=== PATIENT | male | born 1940 | race Caucasian/White ===

== ENCOUNTER → 2024-04-03 08:09 | Outpatient (REF) | payer MEDICARE, BC, SELFPAY | LOC: RAD 08:09 | PROVIDERS: ATTENDING PHYSICIAN Surgery Vascular Surgery; FAMILY PHYSICIAN Internal Medicine Geriatric Medicine | DX: I73.9 Peripheral vascular disease, unspecified (principal) | CPT/HCPCS: 93922; 93925 ==

== ENCOUNTER → 2024-04-07 07:16 | Outpatient (REF) | payer MEDICARE, BC, SELFPAY ==
[2024-04-07 08:38] LABS: % Basophils 0.6 % (0-2); % Eosinophils 2.3 % (0-6); % Immature Granulocytes 0.5 % (0-0.5); % Lymphocytes 17.6 % (20.5-51.1); % Monocytes 11.9 % (1.7-9.3); % Neutrophils 67.1 % (42.2-75.2); Absolute Basophils 0.1 10^3/uL (0-0.2); Absolute Eosinophils 0.2 10^3/uL (0-0.7); Absolute Lymphocytes 1.5 10^3/uL (1.2-3.4); Absolute Neutrophils 5.9 10^3/uL (1.4-6.5); Hematocrit 42.2 % (39.0-52.0); Hemoglobin 14.1 g/dL (13.0-18.0); Mean Corp Hgb Conc. 33.4 g/dL (33.0-37.0); Mean Corpuscular Hgb 31.1 pg (27.0-31.0); Mean Platelet Volume 10.8 fL (7.4-10.4); Nucleated Red Blood Cells % 0 % (-); Platelet Count 214 10^3/uL (130-400); Red Blood Cell Count 4.54 10^6/uL (4.70-6.10); White Blood Cell Count 8.8 10^3/uL (4.8-10.8)
[2024-04-07 08:54] LABS: ALT (SGPT) 19 U/L (0-50); AST (SGOT) 22 U/L (17-59); Albumin 3.4 g/dl (3.5-5.0); Alkaline Phosphatase 121 U/L (38-126); Blood Urea Nitrogen 21 mg/dl (9-20); Carbon Dioxide 22 mmol/L (22-30); Chloride 111 mmol/L (98-107); Glucose 141 mg/dl (70-99); Iron 68 ug/dl (49-181); Potassium 4.2 mmol/L (3.5-5.1); Sodium 140 mmol/L (135-145); Total Bilirubin 0.5 mg/dl (0.2-1.3); eGFR > 60.00
[2024-04-07 09:05] LABS: Percent Saturation 33 % (20-50); Total Iron Binding Capacity 201 ug/dl (261-462)
[2024-04-07 09:50] LABS: Glycohemoglobin (HgbA1c) 7.5 % (4.0-5.6)
[2024-04-09 02:05] LABS: Transferrin 142 mg/dL (200-360)
[2024-04-09 19:28] LABS: AFP Male/Tumor Marker 0.946 ng/ml
== END ==
LOC: REG 07:16
PROVIDERS: ATTENDING PHYSICIAN Family Medicine; FAMILY PHYSICIAN Family Medicine
DX: E11.65 Type 2 diabetes mellitus with hyperglycemia (principal); E11.59 Type 2 diabetes mellitus with other circulatory complications; E83.110 Hereditary hemochromatosis
CPT/HCPCS: 36415; 80053; 82105; 82728; 83036; 83540; 83550; 84466; 85025

== ENCOUNTER → 2024-07-06 06:57 | Outpatient (REF) | payer MEDICARE, BC, SELFPAY ==
[2024-07-06 09:47] LABS: % Basophils 0.3 % (0-2); % Eosinophils 2.7 % (0-6); % Immature Granulocytes 0.4 % (0-0.5); % Lymphocytes 18.4 % (20.5-51.1); % Monocytes 13.2 % (1.7-9.3); Absolute Eosinophils 0.3 10^3/uL (0-0.7); Absolute Lymphocytes 1.8 10^3/uL (1.2-3.4); Absolute Monocytes 1.3 10^3/uL (0.1-0.6); Absolute Neutrophils 6.4 10^3/uL (1.4-6.5); Hematocrit 40.9 % (39.0-52.0); Hemoglobin 14.4 g/dL (13.0-18.0); Mean Corp Hgb Conc. 35.2 g/dL (33.0-37.0); Mean Corpuscular Hgb 31.5 pg (27.0-31.0); Mean Corpuscular Volume 89.5 fL (80.0-94.0); Mean Platelet Volume 11.1 fL (7.4-10.4); Nucleated Red Blood Cells % 0 % (-); Platelet Count 216 10^3/uL (130-400); Red Blood Cell Count 4.57 10^6/uL (4.70-6.10); Red Cell Dist. Width 13.1 % (11.5-14.5); White Blood Cell Count 9.9 10^3/uL (4.8-10.8)
[2024-07-06 10:10] LABS: ALT (SGPT) 17 U/L (0-50); AST (SGOT) 23 U/L (17-59); Albumin 3.6 g/dl (3.5-5.0); Alkaline Phosphatase 108 U/L (38-126); Blood Urea Nitrogen 27 mg/dl (9-20); Calcium 9.1 mg/dl (8.4-10.2); Carbon Dioxide 24 mmol/L (22-30); Chloride 108 mmol/L (98-107); Glucose 145 mg/dl (70-99); HDL Cholesterol 34 mg/dl; LDL Cholesterol, Calculated 52 mg/dl; Potassium 4.5 mmol/L (3.5-5.1); Sodium 138 mmol/L (135-145); Total Bilirubin 0.7 mg/dl (0.2-1.3); Total Cholesterol 102 mg/dl (50-199); Triglyceride 84 mg/dl (10-149); Very Low Density Lipoprotein 16 mg/dl (0-30); eGFR > 60.00
[2024-07-06 10:17] LABS: Vitamin D, 25-OH*** 28.3 ng/mL (30-80)
[2024-07-06 10:31] LABS: PSA, Total - Screen 1.78 ng/ml (0.0-4.0)
== END ==
LOC: HWLAB 06:57
PROVIDERS: ATTENDING PHYSICIAN Internal Medicine Geriatric Medicine
DX: G56.01 Carpal tunnel syndrome, right upper limb (principal); E11.9 Type 2 diabetes mellitus without complications; I10 Essential (primary) hypertension; E78.2 Mixed hyperlipidemia; Z86.73 Personal history of transient ischemic attack (TIA), and cerebral infarction without residual deficits; E83.110 Hereditary hemochromatosis; I35.0 Nonrheumatic aortic (valve) stenosis; Z12.5 Encounter for screening for malignant neoplasm of prostate; E55.9 Vitamin D deficiency, unspecified
CPT/HCPCS: 36415; 80053; 80061; 82306; 85025; G0103

== ENCOUNTER → 2024-10-12 06:41 | Outpatient (REF) | payer MEDICARE, BC, SELFPAY ==
[2024-10-12 09:57] LABS: ALT (SGPT) 21 U/L (0-50); AST (SGOT) 23 U/L (17-59); Albumin 3.6 g/dl (3.5-5.0); Alkaline Phosphatase 108 U/L (38-126); Blood Urea Nitrogen 31 mg/dl (9-20); Calcium 9.2 mg/dl (8.4-10.2); Carbon Dioxide 25 mmol/L (22-30); Chloride 107 mmol/L (98-107); Glucose 152 mg/dl (70-99); Potassium 4.5 mmol/L (3.5-5.1); Sodium 142 mmol/L (135-145); Total Bilirubin 0.6 mg/dl (0.2-1.3); Total Protein 6.2 g/dl (6.3-8.2); eGFR > 60.00
[2024-10-12 11:46] LABS: Glycohemoglobin (HgbA1c) 7.5 % (4.0-5.6)
== END ==
LOC: HWLAB 06:41
PROVIDERS: ATTENDING PHYSICIAN Internal Medicine Geriatric Medicine
DX: G56.01 Carpal tunnel syndrome, right upper limb (principal); E11.9 Type 2 diabetes mellitus without complications; I10 Essential (primary) hypertension; E78.2 Mixed hyperlipidemia; Z86.73 Personal history of transient ischemic attack (TIA), and cerebral infarction without residual deficits; I63.9 Cerebral infarction, unspecified; I35.0 Nonrheumatic aortic (valve) stenosis; I11.9 Hypertensive heart disease without heart failure; E55.9 Vitamin D deficiency, unspecified; Z13.89 Encounter for screening for other disorder
CPT/HCPCS: 36415; 80053; 83036

== ENCOUNTER → 2024-10-22 12:12 | Outpatient (REF) | payer MEDICARE, BC, SELFPAY | LOC: RAD 12:12 | PROVIDERS: ATTENDING PHYSICIAN Surgery Vascular Surgery; FAMILY PHYSICIAN Internal Medicine Geriatric Medicine | DX: I73.9 Peripheral vascular disease, unspecified (principal) | CPT/HCPCS: 93922; 93925 ==

== ENCOUNTER → 2024-10-26 06:27 | Outpatient (REF) | payer MEDICARE, BC, SELFPAY ==
[2024-10-26 10:23] LABS: % Basophils 0.3 % (0-2); % Eosinophils 2.2 % (0-6); % Immature Granulocytes 0.5 % (0-0.5); % Lymphocytes 17.6 % (20.5-51.1); % Monocytes 12.9 % (1.7-9.3); % Neutrophils 66.5 % (42.2-75.2); Absolute Eosinophils 0.3 10^3/uL (0-0.7); Absolute Immature Granulocytes 0.1 10^3/uL (0-0.05); Absolute Monocytes 1.5 10^3/uL (0.1-0.6); Absolute Neutrophils 7.6 10^3/uL (1.4-6.5); Hematocrit 45.9 % (39.0-52.0); Hemoglobin 14.9 g/dL (13.0-18.0); Mean Corp Hgb Conc. 32.5 g/dL (33.0-37.0); Mean Corpuscular Hgb 31.2 pg (27.0-31.0); Mean Platelet Volume 10.9 fL (7.4-10.4); Nucleated Red Blood Cells % 0 % (-); Platelet Count 236 10^3/uL (130-400); Red Blood Cell Count 4.78 10^6/uL (4.70-6.10); White Blood Cell Count 11.5 10^3/uL (4.8-10.8)
[2024-10-26 10:44] LABS: ALT (SGPT) 22 U/L (0-50); AST (SGOT) 24 U/L (17-59); Albumin 3.8 g/dl (3.5-5.0); Alkaline Phosphatase 107 U/L (38-126); Blood Urea Nitrogen 30 mg/dl (9-20); Calcium 9.3 mg/dl (8.4-10.2); Carbon Dioxide 29 mmol/L (22-30); Chloride 107 mmol/L (98-107); Glucose 166 mg/dl (70-99); HDL Cholesterol 37 mg/dl; LDL Cholesterol, Calculated 52 mg/dl; Potassium 4.6 mmol/L (3.5-5.1); Sodium 141 mmol/L (135-145); Total Bilirubin 0.6 mg/dl (0.2-1.3); Total Cholesterol 108 mg/dl (50-199); Total Protein 6.3 g/dl (6.3-8.2); Triglyceride 98 mg/dl (10-149); Very Low Density Lipoprotein 19 mg/dl (0-30); eGFR > 60.00
[2024-10-26 11:07] LABS: TSH 1.24 uIU/ml (0.47-4.68)
[2024-10-26 11:11] LABS: Protein/creatinine Ratio 0.8; Urine Protein 57 mg/dl
[2024-10-26 11:37] LABS: Microalbumin, Random Urine 33.5 mg/dl (0.6-1.7); Microalbumin/creatinine Ratio 483.4 mg/g
== END ==
LOC: HWLAB 06:27
PROVIDERS: ATTENDING PHYSICIAN Physician Assistant; FAMILY PHYSICIAN Internal Medicine Geriatric Medicine
DX: E11.65 Type 2 diabetes mellitus with hyperglycemia (principal)
CPT/HCPCS: 36415; 80053; 80061; 82043; 82570; 84156; 84443; 85025

== ENCOUNTER 2024-12-08 09:59 | Inpatient (IN) | payer OTHER, SELFPAY ==
[2024-12-08] VITALS (37 sets, daily range): BP systolic 74–156; BP diastolic 54–97; PULSE 3; BMI 26.4
[2024-12-08] MEDS: NITROGLYCERIN PREMIX 250 IV (06:54)
[2024-12-08 06:57] LABS: % Basophils 0.5 % (0-2); % Eosinophils 2.3 % (0-6); % Immature Granulocytes 0.7 % (0-0.5); % Lymphocytes 26.7 % (20.5-51.1); % Monocytes 12.4 % (1.7-9.3); % Neutrophils 57.4 % (42.2-75.2); Absolute Basophils 0.1 10^3/uL (0-0.2); Absolute Eosinophils 0.3 10^3/uL (0-0.7); Absolute Immature Granulocytes 0.1 10^3/uL (0-0.05); Absolute Lymphocytes 3.5 10^3/uL (1.2-3.4); Absolute Monocytes 1.6 10^3/uL (0.1-0.6); Absolute Neutrophils 7.5 10^3/uL (1.4-6.5); Hematocrit 46.1 % (39.0-52.0); Hemoglobin 15.3 g/dL (13.0-18.0); Mean Corp Hgb Conc. 33.2 g/dL (33.0-37.0); Mean Corpuscular Hgb 31.8 pg (27.0-31.0); Mean Corpuscular Volume 95.8 fL (80.0-94.0); Mean Platelet Volume 10.6 fL (7.4-10.4); Nucleated Red Blood Cells % 0 % (-); Platelet Count 276 10^3/uL (130-400); Red Blood Cell Count 4.81 10^6/uL (4.70-6.10); Red Cell Dist. Width 13.3 % (11.5-14.5)
[2024-12-08 07:06] LABS: INR 0.95
[2024-12-08 07:07] LABS: APTT 30.9 Sec (23.4-35.0)
[2024-12-08 07:13] LABS: ALT (SGPT) 21 U/L (0-50); AST (SGOT) 25 U/L (17-59); Alkaline Phosphatase 126 U/L (38-126); Blood Urea Nitrogen 30 mg/dl (9-20); Calcium 8.9 mg/dl (8.4-10.2); Carbon Dioxide 21 mmol/L (22-30); Chloride 106 mmol/L (98-107); Glucose 274 mg/dl (70-99); Potassium 4.4 mmol/L (3.5-5.1); Sodium 140 mmol/L (135-145); Total Bilirubin 0.6 mg/dl (0.2-1.3); Total Protein 6.7 g/dl (6.3-8.2); eGFR > 60.00
--- NOTE | 2024-12-08 07:14 | ED.GENMED ---
History of Present Illness
General
Chief Complaint: Breathing Problem
Time Seen by Provider: 12/08/24 06:34
History of Present Illness
History of Present Illness:
84-year-old male with history of hypertension and PAD presenting to the emergency department with shortness of breath. Patient reports symptoms started last evening, and escalated this morning. When medics arrived, hypoxic to the 70s. Patient was
placed on CPAP. On arrival, patient does note some interval improvement. Denies any history of CHF. Denies any chest pain. Denies any swelling to his extremities. Reports compliance with his medications. Denies any recent fever or illness.
Limited story given critical condition. No additional history obtained at this time
Past History
Past History
ED Past Medical History: IDDM
Social History
Personal:
Phy Exam
Physical Exam
Physical Exam:
General: Moderate respiratory distress
HEENT: protecting airway
Neck: appears supple
CV: Normal heart rate, regular rhythm
Resp: Increased work of breathing, accessory muscle use, crackles bilaterally
Abd: Soft and non-distended, no tenderness to palpation
Extremities: No deformities, no swelling, no erythema
Neuro: alert, no focal neurologic deficit
: deferred
Rectal: deferred
Psych: Normal affect
Skin: Intact
Scores
Heart Failure Risk
Heart Failure Risk Score: Yes
History of Stroke or TIA: No
History of intubation for respiratory distress: No
Heart rate on ED arrival >/= 110: No
SaO2 <90% on arrival on room air: Yes
HR >/=110 during 3min walk test (or too ill to perform test): Yes
ECG has acute ischemic changes: No
Urea >/=12mmol/L (BUN 33.6mg/dL): No
Serum CO2>/=35mmol/L: No
Troponin I or T elevated to AL Level (0.4mg/dL): No
NT-proBNP >/=5,000ng/L (5,000pg/ml): No
HF Risk Score: 3
Admission Status: HIGH RISK 15.9% Consider SNF treatment or admission to hospital
Course
Orders/Labs/Results
Orders:
Orders
12/08/24 Breakfast
Cholesterol Lowering
At Your Request: Full Participation
Does patient need a safe tray?: No
Cholesterol Lowering: Sodium, 2 Gram
1800 ruiz/15 CHO Diabetic
12/08/24 06:34
Electrocardiogram (*1) Urgent
Reason for Study: Shortness of Breath
EKG- Treatment ONCE
Nitroglycerin 100 mg/250 ml [Nitroglycerin Premix] 100 mg in 250 ml IV NOW
Initial dose in mcg/min, then titrate:: 5
Titrate to keep:: SBP < 160 mmHg
Titrate by mcg/min:: 5 mcg/min, may increase by 10 mcg/min if dose > 20 mcg/min
Frequency of titrations (minutes):: every 3-5 minutes
Maximum dose in mcg/min:: 200
Begin to taper infusion when:: Remained at goal for 2hrs
Taper by mcg/min:: 5 mcg/min
Frequency of taper (minutes) if patient maintains goal:: 30
Taper to off?: Yes
If infusion off & no longer maintaining goal:: Contact Provider
CR Chest Portable - 1 View Urgent
Comment:
Reason For Exam: sob
Reason Study Needs to be Portable: Unable to Transport
12/08/24 06:47
COVID-19 Antigen Urgent
Source: Nasal Swab
Complete Blood Count/With Diff Urgent
Comprehensive Metabolic Panel Urgent
Lactate Level [Lactic Acid] Urgent
NT-proBNP Urgent
PTT Urgent
Prothrombin Time Urgent
Troponin I Urgent
Influenza A+B Rapid Molecular Urgent
DAPHNE Source: Nasal Swab
Specimen Description:
12/08/24 09:37
Admit/Transfer Patient As Directed
Co-Sign Provider:
Level of Care: Inpatient admission
Assign to:: IVU
Physician / Group: Dr Daley
Diagnosis: Pulmonary edema
Reason for Hospitalization: pte p/w sob and found in pulm edema and resp distress.
Expected length of stay greater than two midnights?: Yes
ELOS- Estimated Length of Stay in days: 2
I certify the patient meets the requirements for IP care: Yes
PRN Pain Medication Management As Directed
May give lesser potent ordered pain med per pt: Yes
preference::
Protocol:: Medication orders for pain may be administered in a
manner that supports deferring to patient preference
when the pt is:
- Requesting an ordered lesser potent pain medication.
Least to most potent pain medications are defined
as: acetaminophen < NSAID < tramadol < opioids
(morphine, oxycodone, hydromorphone).
- Requesting a lesser dose of the same medication IF
ORDERED.
- Requesting a less intrusive route of administration
if both routes are prescribed by the provider (PO <
IV).
12/08/24 09:38
Code Status As Directed
Resuscitation Status: Full Code
12/08/24 09:40
CARDIOLOGY CONSULT Routine
Consulting Provider: Rafy Leal
Was physician already notified: Yes
Reason for consult: pulm edema and severe eval
Dextrose 50%-Water [Dextrose 50% Syringe] 12.5 grams IV [id number] PRN
Glucagon [GlucaGen] 1 mg IM PRN PRN
12/08/24 09:41
Bedside Glucose Monitoring As Directed
Frequency: AC&HS
Additional Instructions:: Change to q6h if pt on TPN, tube feeding or not eating
12/08/24 10:00
Furosemide [Lasix] 40 mg IV BID AT 0800,1600
12/08/24 11:30
Insulin Aspart Corrective Mod [Novolog Flexpen-Moderate Resistance] See Protocol SC AC
12/08/24 12:00
Ipratropium/Albuterol Sulfate [Duoneb] 3 ml INH R QID
12/08/24 12:13
Bisacodyl [Dulcolax] 10 mg RECTAL [id number] PRN
Docusate W/Senna [Senokot-S] 1 tablet PO BIDPRN PRN
Polyethylene Glycol Powder [Miralax] 17 grams PO DAILYPRN PRN
12/08/24 12:13
Activity As Directed
Activity Level: Out of Bed-Early Mobility
Vital Signs As Directed
Frequency: Per unit guidelines
O2 Therapy [RESP] Routine
Titrate/Wean O2 to maintain O2 sat greater than (%): 92
DX Deep Vein Thrombosis Video Routine
12/08/24 18:00
Enoxaparin Sodium [Lovenox] 40 mg SC QPM
12/09/24 06:00
Basic Metabolic Panel IN AM
Complete Blood Count/With Diff IN AM
Glycohemoglobin (HgbA1c) IN AM
Abnormal Lab Results
12/08/24
06:47
WBC 13.0 H 10^3/uL
(4.8-10.8)
MCV 95.8 H fL
(80.0-94.0)
MCH 31.8 H pg
(27.0-31.0)
MPV 10.6 H fL
(7.4-10.4)
Abs Immat Gran (auto) 0.1 H 10^3/uL
(0-0.05)
Absolute Neuts (auto) 7.5 H 10^3/uL
(1.4-6.5)
Absolute Lymphs (auto) 3.5 H 10^3/uL
(1.2-3.4)
Absolute Monos (auto) 1.6 H 10^3/uL
(0.1-0.6)
Immature Gran % 0.7 H %
(0-0.5)
Monocytes % 12.4 H %
(1.7-9.3)
Carbon Dioxide 21 L mmol/L
(22-30)
BUN 30 H mg/dl
(9-20)
Glucose 274 H mg/dl
(70-99)
Troponin I 0.077 H* ng/ml
12/08/24 06:47
12/08/24 06:47
Vital Signs
Initial and Last Documented VS:
Initial Vital Signs
Temp Pulse Resp BP Pulse Ox
98.0 F 114 32 156/88 96
12/08/24 06:40 12/08/24 06:40 12/08/24 06:40 12/08/24 06:40 12/08/24 06:40
Last Documented Vital Signs
Temp Pulse Resp BP Pulse Ox
98.0 F 73 16 122/61 97
12/08/24 06:40 12/08/24 15:25 12/08/24 15:25 12/08/24 11:45 12/08/24 12:22
MDM/Problems Addressed
MDM/Problems Addressed:
84-year-old male with history of hypertension presenting for shortness of breath. Vital signs on arrival significant for tachypnea, hypertension, hypoxia.
On exam, patient in respiratory distress with increased work of breathing, on CPAP. Patient with crackles bilaterally, hypertension. Symptoms consistent with flash pulmonary edema, new onset heart failure. Plan for chest x-ray, nitro drip,
laboratory analysis, BiPAP. Respiratory bedside.
07:45 - Chest x-ray consistent with pulmonary edema. BNP is elevated. Patient is clinically improving. Will maintain on BiPAP and continue nitro drip. Plan for admission.
*EKG
Interpreted by ED Provider?: Yes
EKG Intrepretation Date: 12/08/24
EKG Intrepretation Time: 07:16
Interpretation: normal
Comparison EKG: no changes (06/15/21)
Heart Rate: 74
Rhythm: sinus
Walnut: normal axis
Interval: normal interval
QRS Pattern: normal QRS
Ischemia: no ischemia
*Critical Care Note
Total Time (30-74mins, 75-104mins- exclusive of procedures): 60
comment:
The high probability of a clinically significant, sudden or life threatening deterioration of the cardiopulmonary system(s) required my full and direct attention, intervention and personal management. The aggregate critical care time was 60 minutes.
This time is in addition to time spent performing reported procedures but includes the following:
[x] Data Review and interpretation
[x] Patient assessment and monitoring of vital signs
[x] Documentation
[x] Medication orders and management
ED Attending Note
-
Portions of this chart may have been created with voice recognition software.� Occasional wrong word or��sound alike� substitutions may have occurred due to the inherent limitations of voice recognition software.
Discharge Plan
Departure
Patient Disposition: Admit
Date of Disposition: 12/08/24
Time of Disposition: 08:01
Presentation/result/management discussed w/ accepting MD/DO: Hospitalist
Patient with high blood pressure during this ER visit?: Yes
Condition: Fair
Discharge Problem:
New onset of congestive heart failure, Pulmonary edema, Hypertensive emergency
Interventions
Interventions:
*Risk Screen - Suicide Last Done: 12/08/24 12:36
*General Assessment Last Done: 12/08/24 07:21
*Neglect/Abuse Screening Last Done: 12/08/24 07:21
ED- Fall Risk Assessment Last Done: 12/08/24 07:21
*ED COVID-19 Vaccine History Last Done: 12/08/24 12:36
*Nursing Disposition Last Done: 12/08/24 12:23
ED- Cardiac Assessment Last Done: 12/08/24 07:21
ED- Pulmonary Assessment Last Done: 12/08/24 07:00
Discharge Date and Time
Discharge Date/Time: 12/08/24 12:23
[2024-12-08 07:24] LABS: NT-proBNP 2060 pg/ml; Troponin I 0.077 ng/ml
[2024-12-08 07:25] LABS: Lactic Acid 1.3 mmol/L (0.7-2.0)
[2024-12-08 07:45] LABS: COVID-19 Antigen Negative (Negative)
--- NOTE | 2024-12-08 09:14 | HPS.HSE ---
Family Physician
-
Family Physician: Isai Olsen
Chief Complaint
-
Shortness of breath
History of Present Illness
Patient 84 years old male history of hypertension, hyperlipidemia, diabetes mellitus, severe aortic stenosis, PVD, came into the hospital with shortness of breath. Patient has been experiencing shortness of breath for several months but woke up
this morning from sleep very short of breath and had to come to the hospital. He has dyspnea on exertion has been progressive getting worse with short distance as time has gone by and also describes some chest discomfort as burning sensation in his
chest intermittent in nature. This time denies chest pain. Denies syncope or diaphoresis. Denies fevers or chills. He does have some cough with some sputum production. In the ER he was noted to be in pulmonary edema and he was given IV
diuretic, oxygenation, and placed on CPAP urgently for respiratory distress. He also was given nitroglycerin drip and had to be discontinued because of hypotension. He does follow-up with cardiology as outpatient and he has been told that he might
need some intervention on his valve but he has follow-up as outpatient recently. He does smoke in a regular basis although he has been cutting down somewhat. He was referred to hospitalist service for further evaluation.
Medical History
Past Medical History
Past Medical History: Reports Other (Hypertension, hyperlipidemia, diabetes mellitus type 2, peripheral vascular disease, CVA in the past, hemochromatosis, osteoarthritis, severe aortic stenosis.)
Past Surgical History: Reports Other (Cataract extraction, arteriogram in the past, carpal tunnel release, laser treatment of his eyes and also retinal surgeries.)
Social History
Tobacco: Smoker
Alcohol: Occasional
Drug: None
Family History
Family History: Not pertinent
Allergies / Home Medications
Allergies reflects when Allergies were last updated in [employer].
Home Medications with original date entered in [employer]
Allergy/Medication List:
Allergies
Allergy/AdvReac Type Severity Reaction Status Date / Time
No Known Allergies Allergy Verified 06/18/21 06:32
Home Medications
insulin aspart U-100 100 unit/mL (3 mL) subcutaneous pen (Novolog FlexPen U-100 Insulin aspart) 24 units SC .BREAKFAST,DINNER 04/23/13
insulin glargine 100 unit/mL subcutaneous solution (Lantus U-100 Insulin) 15 units SC DAILY 07/30/13
aspirin 81 mg tablet,delayed release 81 mg PO DAILY 04/17/20
atorvastatin 80 mg tablet 80 mg PO DAILY 04/17/20
clopidogrel 75 mg tablet 75 mg PO DAILY 04/17/20
lisinopril 20 mg tablet 20 mg PO DAILY 04/17/20
brimonidine 0.2 %-timolol 0.5 % eye drops (Combigan) 1 drp ophthalmic (eye) BID 06/11/21
insulin aspart U-100 100 unit/mL subcutaneous solution (Novolog U-100 Insulin aspart) 16 unit SQ .LUNCH 06/11/21
Review of Systems
-
A 12 point ROS was completed and negative except as noted: Yes
Physical Exam
Vital Signs
Vital Signs
Temp Pulse Resp BP Pulse Ox
98.0 F 83 20 102/76 98
12/08/24 06:40 12/08/24 08:54 12/08/24 08:54 12/08/24 08:54 12/08/24 08:54
Physical exam:
General: Acutely ill
HEENT: Normocephalic, Atraumatic and Moist Mucous Membranes
Respiratory: Coarse crackles bilateral; Negative Wheezes or Rhonchi
Cardiac: Regular Rhythm and S1/S2, systolic ejection murmur, tachycardic
GI: Soft, Nontender and Nondistended
Musculoskeletal: Bilateral lower extremity edema. No Clubbing, No Cyanosis
Neuro: Awake, Alert and Oriented, no gross neurological deficit
Psych: Anxious
Physical Exam
General: Other
Laboratory Results
-
12/08/24 06:47
12/08/24 06:47
Laboratory Results
PT 13.0 Sec (11.4-14.6) 12/08/24 06:47
INR 0.95 12/08/24 06:47
APTT 30.9 Sec (23.4-35.0) 12/08/24 06:47
Lactic Acid 1.3 mmol/L (0.7-2.0) 12/08/24 06:47
Total Bilirubin 0.6 mg/dl (0.2-1.3) 12/08/24 06:47
AST 25 U/L (17-59) 12/08/24 06:47
ALT 21 U/L (0-50) 12/08/24 06:47
Alkaline Phosphatase 126 U/L (38-126) 12/08/24 06:47
Troponin I 0.077 ng/ml H* 12/08/24 06:47
Data Reviewed
-
Diagnostic Radiology: Image Personally Visualized and interpreted
Lab Data: Labs Reviewed by me
Impression/Plan
-
IMPRESSION:
Patient 84 years old male with multiple comorbidities came into the hospital with acute respiratory failure due to pulmonary edema. Patient at high risk cardiac and respiratory compromise therefore he will need to be admitted to the hospital and
monitored accordingly.
PLAN:
Acute diastolic congestive heart failure pulmonary edema:
Start IV Lasix 40 mg twice a day with holding parameters
Will need updated echocardiogram
Monitor ins and out
Monitor daily weight
Would not use nitro to avoid hypotension in the setting of
Cardiology consult-discussed with cardiology
Acute respiratory failure:
Evidence of tachypnea, respiratory distress, increased work of breathing and require BiPAP. Unclear oxygenation status if hypoxic or not since documentation shows normal oxygenation.
Can discontinue BiPAP and start oxygen supplementation as needed
Monitor respiratory status closely
Severe arctic stenosis:
Cardiology evaluation for timing of replacement
Might need updated echo
Hypertension:
Antihypertensives
Monitor blood pressure closely
Hyperlipidemia:
Continue statin
Peripheral vascular disease:
Continue antiplatelets and statins
CVA:
Antiplatelet and statin
Diabetes mellitus type 2:
Diabetic diet
Insulin sliding scale
Monitor blood sugar and adjust medications according
Nicotine use disorder:
Will use nicotine patch
DVT prophylaxis:
Lovenox SQ
CODE STATUS:
Full code
Time spent 75 minutes
--- NOTE | 2024-12-08 09:55 | CON.CAR ---
Addendum entered and electronically signed by Rafy Leal MD 12/08/24 12:13:
I saw and examined the patient.
The CONTROLS DESIGN ENGINEER's note was reviewed and I agree with the note.
84-year-old male formally followed by Dr. Ferrari who has a history of severe aortic stenosis with mean gradient of 45 mmHg based on echocardiogram 01/06/2023, PAD (bilateral SFA stenting), hypertension, diabetes, hemochromatosis, history of CVA 2017
and smoking who presents with shortness of breath. Patient's had some exertional shortness of breath for months. He states that sometimes when he carries his briefcase for distance to going to work he will even have some shortness of breath and
almost feels like he has some burning in his chest. Over the past week he has had increased exertional shortness of breath but has not had chest discomfort. Patient then had abrupt increase in shortness of breath this morning. Woke him from
sleep. No chest pain or palpitations. Chest x-ray suggestive of CHF. Patient given IV diuretic and O2 and is currently breathing comfortably. Patient had been following our office for severe aortic stenosis but has not followed up since 2022.
.
Shortness of breath. Consistent with acute left heart failure. Patient also may have some underlying lung disease considering his long history of smoking. Patient appears to have acute heart failure in the setting of severe aortic stenosis. But
will also need to evaluate for other factors which may contribute including CAD as well as changes in LV function.
-Diuresis with IV Lasix with close monitoring of blood pressure and labs
-I's and O's and weights
-Serial troponins
-Echocardiogram this admission to further evaluate aortic stenosis and left ventricular function
-If patient's respiratory status has improved and labs remained stable then would consider cardiac catheterization on 12/10/2024
Original Note:
Consultation
Consultation Request
Date/Time Consultation Requested: 12/08/24 9:40a
Date/Time Consultation Performed: 12/08/24 9:45a
Requesting Provider: Dr. Daley
Performing Provider: KAITLYNN Cobos for Dr. Leal
Reason for Consultation: flash pulmonary edema/CHF
Medical History
-
Chief Complaint: SOB
History of Present Illness:
Mr. Martinez is an 84 yo male with PAD (s/p RSFA stents 2019, LSFA stents [address] Hernandez), CVA 2017, HTN, IDDM, smoker, hemochromatosis and severe , who presents to the ER with c/o acute SOB that began last night and worsened this am,
called EMS. EMS arrived and he was hypoxic with sats in the 70s, on BiPAP in the ER and feeling better. He is admitted to the hospitalist service and we are consulted for acute HFpEF. He feels improved on BiPAP, IV Nitro and IV Lasix. His last
office visit with Dr. Rodríguez was 07/2023 and last echo was 01/06/23 with EF 70%, mild cLVH, moderately dilated left atrium, severe aortic stenosis with peak/mean gradients are 80/45 mmHg, MARIAN 0.9 cm2, no other significant valvular disease. Compared
to prior study of 06/22/22 the previous aortic valve gradients were 74/43 mmHg, with estimated aortic valve area 1.2 cm2. He admits to still smoking 2-3 cigarettes a day.
Past Medical History
Past Medical History: Other (as above)
Past Surgical History: Other (as above)
Social History
Tobacco: Smoker (2-3 cigarettes a day)
Alcohol: Occasional
Personal:
Living: With Family
Employment: Retired
Family History
Family History: Reviewed & Not Pertinent
Allergies / Home Medications
Allergy/AdvReac Type Severity Reaction Status Date / Time
No Known Allergies Allergy Verified 06/18/21 06:32
�Medication �Instructions �Recorded �Confirmed �Type
insulin aspart U-100 100 unit/mL 24 units SC .BREAKFAST,DINNER 04/23/13 06/18/21 History
(3 mL) subcutaneous pen (Novolog
FlexPen U-100 Insulin aspart)
insulin glargine 100 unit/mL 15 units SC DAILY 07/30/13 06/18/21 History
subcutaneous solution (Lantus
U-100 Insulin)
aspirin 81 mg tablet,delayed 81 mg PO DAILY 04/17/20 06/18/21 History
release
atorvastatin 80 mg tablet 80 mg PO DAILY 04/17/20 06/18/21 History
clopidogrel 75 mg tablet 75 mg PO DAILY 04/17/20 06/18/21 History
lisinopril 20 mg tablet 20 mg PO DAILY 04/17/20 06/18/21 History
brimonidine 0.2 %-timolol 0.5 % 1 drp ophthalmic (eye) BID 06/11/21 06/18/21 History
eye drops (Combigan)
insulin aspart U-100 100 unit/mL 16 unit SQ .LUNCH 06/11/21 06/18/21 History
subcutaneous solution (Novolog
U-100 Insulin aspart)
Review of Systems
-
History Source: Patient
All other systems: Negative unless noted
Physical Exam
Vital Signs
Temp Pulse Resp BP Pulse Ox
98.0 F 83 20 102/76 98
12/08/24 06:40 12/08/24 08:54 12/08/24 08:54 12/08/24 08:54 12/08/24 08:54
Lab Results
12/08/24 06:47
12/08/24 06:47
Troponin I 0.077 ng/ml H* 12/08/24 06:47
Sim-U-Rzvfvusyttd Pept 2060 pg/ml 12/08/24 06:47
Physical Exam
General: Well Developed, Well Nourished and No Apparent Distress (on bipap )
HEENT: Normocephalic and Anicteric
Respiratory: Crackles (diffuse b/l), Non Labored Respirations and Other (on bipap)
Cardiac: S1/S2, Regular Rhythm, Murmur (2/6 MILTON) and Peripheral Edema (trace b/l LE)
Breast: Deferred by me
GI: Soft, Non Tender, Non Distended and Normal Bowel Sounds
Rectal: Deferred by Provider
Genito-urinary: No Costovertebral Tender
Musculoskeletal: No Clubbing and No Cyanosis
Skin: Warm and Dry
Neuro: AO x 3
Hematologic/Lymphatic: No Lymphadenopathy
Psych: Calm
Impression / Plan
-
HFpEF - acute.
- proBNP 2059, CXR with CHF.
- improved with BiPAP, IV Nitro and IV Lasix.
- agree with diuresis, monitor daily weights I&Os.
- check echo.
- last echo 01/06/23: EF 70%, mild cLVH, moderately dilated left atrium, severe aortic stenosis with peak/mean gradients are 80/45 mmHg, MARIAN 0.9 cm2. No other significant valvular disease.
Aortic stenosis - severe with peak/mean gradients 80/45mmHg on echo 12/2022.
- check echo.
HTN - elevated on admit.
- improved after IV Nitro, now stopped as BP low.
- monitor.
- on Lisinopril 20mg daily as an outpatient.
CVA - 2016, stable.
- continue ASA, Plavix and Lipitor.
PAD - severe.
- s/p right and left SFA stents 2019 and 2020.
- followed by Dr. Hernandez as outpatient.
- continue ASA, Plavix, Lipitor.
IDDM - chronic, on insulin for 12 years.
- per hospitalist.
Tobacco abuse - still smoking 2-3 cigarettes a day.
- smoking cessation reviewed with patient, he verbalized understanding.
Data Reviewed
-
EKG: Tracing Personally Visualized and interpreted (ST 110 bpm, st and t wave abn inferior/lateral leads)
Radiology: Report Reviewed by me (CXR: )
Medical Tests (Nuc Med, Echo etc): Report Reviewed by me (echo 01/06/23: EF 70%, mild cLVH, moderately dilated left atrium, severe aortic stenosis with peak/mean gradients are 80/45 mmHg, MARIAN 0.9 cm2. No other significant valvular disease.)
Labs: Labs Reviewed by me
Old Records: Reviewed
[2024-12-08] MEDS: LASIX 40 MG IV ×2 (10:44→15:11)
[2024-12-08] MEDS: DUONEB 3 ML INH ×3 (10:52→20:54)
[2024-12-08 11:36] LABS: Glucose - Point of Care 175 mg/dl (70-99)
--- NOTE | 2024-12-08 12:18 | RESPNOTE ---
patient seen 1 hour off bipap on 2L O2 n/c. Dr. Leal at bedside. patient looks comfortable, equal, nonlabored respirations.
[2024-12-08] MEDS: NOVOLOG FLEXPEN-MODERATE RESISTANCE SC (13:07)
--- NOTE | 2024-12-08 13:13 | PTCARENOTE ---
Received patient in stable condition from ER @1245. 2lnc O2, mild trujillo, patient sstates he is breathing much better. at bedside.
[2024-12-08 13:29] LABS: Troponin I 0.378 ng/ml
[2024-12-08] MEDS: ASPIR LOW (ENTERIC COATED) 81 MG PO (15:10)
[2024-12-08] MEDS: LIPITOR 80 MG PO (15:10)
[2024-12-08] MEDS: PLAVIX 75 MG PO (15:10)
[2024-12-08 16:33] LABS: Glucose - Point of Care 233 mg/dl (70-99)
[2024-12-08] MEDS: LANTUS 0.28 UNITS SC (17:59)
[2024-12-08 18:57] LABS: Troponin I 0.449 ng/ml
[2024-12-08] MEDS: NOVOLOG FLEXPEN-MODERATE RESISTANCE 3 UNITS SC (19:10)
[2024-12-08] MEDS: NOVOLOG FLEXPEN 16 UNITS SC (19:10)
[2024-12-08] MEDS: NON-FORMULARY ITEM 1 DROP BOTH EYES (19:18)
[2024-12-08] MEDS: LOVENOX 40 MG SC (19:18)
[2024-12-08 21:41] LABS: Glucose - Point of Care 170 mg/dl (70-99)
--- NOTE | 2024-12-08 23:46 | PTCARENOTE ---
Received patient at change of shift resting comfortably in the chair. Patient reports feeling that his breathing has improved. Patient remains on 2L NC, oxygen saturation 97-98%. Voids using urinal without difficulty. Patient denies chest pain or
palpitations. Patient normal sinus rhythm on monitoring coordinator. Plan of care discussed with patient. Call kumari within reach. Care ongoing.
[2024-12-09] VITALS (7 sets, daily range): BP systolic 99–132; BP diastolic 52–83; BMI 26.2
[2024-12-09 01:15] LABS: Troponin I 0.395 ng/ml
[2024-12-09 03:35] LABS: % Basophils 0.3 % (0-2); % Eosinophils 1.3 % (0-6); % Immature Granulocytes 0.5 % (0-0.5); % Lymphocytes 14.2 % (20.5-51.1); % Monocytes 13.1 % (1.7-9.3); % Neutrophils 70.6 % (42.2-75.2); Absolute Eosinophils 0.2 10^3/uL (0-0.7); Absolute Immature Granulocytes 0.1 10^3/uL (0-0.05); Absolute Lymphocytes 2.1 10^3/uL (1.2-3.4); Absolute Monocytes 1.9 10^3/uL (0.1-0.6); Absolute Neutrophils 10.2 10^3/uL (1.4-6.5); Hematocrit 39.3 % (39.0-52.0); Hemoglobin 13.5 g/dL (13.0-18.0); Mean Corp Hgb Conc. 34.4 g/dL (33.0-37.0); Mean Corpuscular Hgb 31.6 pg (27.0-31.0); Mean Platelet Volume 10.6 fL (7.4-10.4); Nucleated Red Blood Cells % 0 % (-); Platelet Count 232 10^3/uL (130-400); Red Blood Cell Count 4.27 10^6/uL (4.70-6.10); Red Cell Dist. Width 13.2 % (11.5-14.5); White Blood Cell Count 14.4 10^3/uL (4.8-10.8)
[2024-12-09 03:55] LABS: Blood Urea Nitrogen 38 mg/dl (9-20); Calcium 9.1 mg/dl (8.4-10.2); Carbon Dioxide 26 mmol/L (22-30); Chloride 103 mmol/L (98-107); Estimated Creatinine Clearance 48 ml/min; Glucose 62 mg/dl (70-99); Potassium 3.9 mmol/L (3.5-5.1); Sodium 137 mmol/L (135-145); eGFR 54.85
[2024-12-09] MEDS: NOVOLOG FLEXPEN 16 UNITS SC ×2 (08:08→12:28)
[2024-12-09] MEDS: NOVOLOG FLEXPEN-MODERATE RESISTANCE SC ×3 (08:09→17:17)
[2024-12-09 08:12] LABS: Glucose - Point of Care 95 mg/dl (70-99)
[2024-12-09] MEDS: LIPITOR 80 MG PO (08:40)
[2024-12-09] MEDS: ZESTRIL 20 MG PO (08:40)
[2024-12-09] MEDS: PLAVIX 75 MG PO (08:40)
[2024-12-09] MEDS: LASIX 40 MG IV (08:41)
[2024-12-09] MEDS: FLUSH (NSS) 1 FLUSH IV (08:41)
[2024-12-09] MEDS: NON-FORMULARY ITEM 1 DROP BOTH EYES ×2 (08:42→20:04)
[2024-12-09] MEDS: ASPIR LOW (ENTERIC COATED) 81 MG PO (08:42)
[2024-12-09] MEDS: LANTUS 0.28 UNITS SC (08:47)
[2024-12-09] MEDS: DUONEB 3 ML INH ×2 (08:54→11:57)
--- NOTE | 2024-12-09 08:57 | W.PN.HOSP.TC ---
Today's Communication/Plan
-
Diuretics. Cardiac cath and echo in a.m.
Assessment / Plan
Assessment / Plan
Physical exam:
General: Acutely ill
HEENT: Normocephalic, Atraumatic and Moist Mucous Membranes
Respiratory: Decreased breath sounds bilateral; Negative Wheezes or Rhonchi; Not much crackles today.
Cardiac: Regular rate and rhythm, systolic ejection murmur, and S1/S2
GI: Soft, Nontender and Nondistended
Musculoskeletal: Bilateral lower extremity edema. No Clubbing, No Cyanosis
Neuro: Awake, Alert and Oriented, no gross neurological deficit
Psych: Calm
A/P:
Acute diastolic congestive heart failure in the setting of with presentation of acute pulmonary edema:
Received IV Lasix this morning and cardiology would like to hold off on further diuresis until reevaluation.
Plan to obtain echocardiogram in a.m.
Monitor ins and out
Monitor daily weight
Would not use nitro to avoid hypotension in the setting of
Cardiology consult appreciated
Discussed with at bedside today on 12/09
PT OT eval
Plan for cardiac cath in a.m.
Acute respiratory failure:
Evidence of tachypnea, respiratory distress, increased work of breathing and require BiPAP. Unclear oxygenation status if hypoxic or not since documentation shows normal oxygenation.
Can discontinue BiPAP and start oxygen supplementation as needed--> wean oxygen as able
Bronchodilators changed to as needed
Monitor respiratory status closely
Severe arctic stenosis:
Cardiology evaluation for timing of replacement
Plan to update echo
Plan for cardiac cath pre-aortic valve replacement evaluation
Elevated troponin:
Non-MO troponin in the setting of heart failure and severe aortic stenosis.
Trending troponins
classroom monitor
Cardiology on board
Leukocytosis:
Suspect reactive but follow-up trend and if worsening might need further workup
Hypertension:
Antihypertensives
Monitor blood pressure closely
Hyperlipidemia:
Continue statin
Peripheral vascular disease:
Continue antiplatelets and statins
Status post right and left SFA stents in the past
CVA:
Neurologically intact
Continue antiplatelets and statin
Diabetes mellitus type 2:
Diabetic diet
Insulin sliding scale
Continue home insulin regimen
HBA1c 7.3
Monitor blood sugar and adjust medications according
Nicotine use disorder:
Advised smoking cessation
Will continue nicotine patch
DVT prophylaxis:
Lovenox SQ
CODE STATUS:
Full code
Total time spent on today's encounter was 52 minutes which included time spent in counseling the patient/family regarding diagnosis and treatment plan as listed above, goals of care, and symptom management. Case was discussed with nursing staff,
specialists, and care coordinators/case management. All labs and imaging personally reviewed by me. Remainder the time spent in detailed review of previous records, lab data, imaging, and other medical provider documentation.
Anticipated Discharge: 24 - 48 hours
Subjective/Interval History
-
Date of Service: December 09, 2024
Patient feels better, less shortness of breath. No chest pain. Afebrile
Objective Data
-
Labs:
Laboratory Results
12/09/24
03:20
WBC 14.4 H
Hgb 13.5
Hct 39.3
Plt Count 232
Sodium 137
Potassium 3.9
Chloride 103
Carbon Dioxide 26
BUN 38 H
Creatinine 1.3
Glucose 62 L
Calcium 9.1
Vital Signs:
Vital Signs
Temp Pulse Resp BP Pulse Ox
97.7 F 74 20 120/53 98
12/09/24 07:02 12/09/24 07:05 12/09/24 07:02 12/09/24 07:05 12/09/24 07:05
I&O
12/08/24 12/09/2412/10/25
06:59 06:59 06:59
Intake Total 480 / 480
Output Total 2200 / 2200
Balance -1720 / -1720
[2024-12-09 09:09] LABS: Glycohemoglobin (HgbA1c) 7.3 % (4.0-5.6)
--- NOTE | 2024-12-09 09:09 | W.PN.CD ---
Today's Communication / Plan
-
-Wean O2
-Patient received IV Lasix this morning will hold additional Lasix and reassess labs in AM.
-Echocardiogram 12/10/2024
-N.p.o. after midnight
-If renal function remains stable we will plan for cardiac catheterization 12/10/2024
.
Issues related to heart failure and aortic stenosis reviewed with both this patient and at the bedside
Impression / Plan
-
HFpEF - acute.
- proBNP 2059, CXR with CHF.
- improved with BiPAP, IV Lasix.
- agree with diuresis, monitor daily weights I&Os.
- check echo 12/10/2024
- last echo 01/06/23: EF 70%, mild cLVH, moderately dilated left atrium, severe aortic stenosis with peak/mean gradients are 80/45 mmHg, MARIAN 0.9 cm2. No other significant valvular disease.
-Wean O2
-Patient received IV Lasix this morning will hold additional Lasix and reassess labs in AM.
Aortic stenosis - severe with peak/mean gradients 80/45mmHg on echo 12/2022.
-Echocardiogram 12/10/2024
-With aortic stenosis and development of heart failure will assess for TAVR versus SAVR. Await echocardiogram. Noted access for TAVR may be an issue in this patient has significant PAD
Elevated troponin. 0.449 suspect non-OK troponin in setting of heart failure and severe aortic stenosis. But with presentation of heart failure and the need for pre-AVR evaluation we will plan for catheterization
-Continue aspirin 81 mg a day
HTN -stable.
CVA - 2017, stable.
- continue ASA, Plavix and Lipitor.
PAD - severe.
- s/p right and left SFA stents 2019 and 2020.
- followed by Dr. Hernandez as outpatient.
- continue ASA, Plavix, Lipitor.
IDDM - chronic, on insulin for 12 years.
- per hospitalist.
Tobacco abuse - still smoking 2-3 cigarettes a day.
- smoking cessation reviewed with patient, he verbalized understanding.
Physical Exam
Vital Signs/Labs
Vital Signs
Temp Pulse Resp BP Pulse Ox
97.7 F 85 18 120/53 96
12/09/24 07:02 12/09/24 08:55 12/09/24 08:55 12/09/24 07:05 12/09/24 08:55
12/08/24 12/09/24 12/10/24
06:59 06:59 06:59
Actual Weight 87.4 kg
12/09/24 03:20
12/09/24 03:20
PT 13.0 Sec (11.4-14.6) 12/08/24 06:47
INR 0.95 12/08/24 06:47
APTT 30.9 Sec (23.4-35.0) 12/08/24 06:47
12/08/24
06:47
Fyj-Z-Hqptzdqcypu Pept 2059
LAB Results
12/08/24 12/08/24 12/08/24
06:47 12:51 18:23
Troponin I 0.077 H* 0.378 H* D 0.449 H*
12/09/24 12/09/24
00:34 06:30
Troponin I 0.395 H* Cancelled
Physical Exam
Constitutional: No acute distress
Cardiovascular: Rhythm & rate is regular and Systolic murmur present
Respiratory: Respiratory effort normal
GI: Soft
Neuro/Psych: Alert and Oriented
Data Reviewed
-
Date of Service: December 09, 2024
Medical Decision Making: Reviewed Test Results
Echo: Report Reviewed by me
Medical Tests (PFT, Pathology etc): Report Reviewed by me
Labs: Labs Reviewed by me
--- NOTE | 2024-12-09 10:46 | PTCARENOTE ---
Received patient this morning sitting oob in the chair, feels much better. Seen by cardiology, for possible cardiac cath tomorrow.
[2024-12-09 12:31] LABS: Glucose - Point of Care 120 mg/dl (70-99)
[2024-12-09 17:11] LABS: Glucose - Point of Care 57 mg/dl (70-99)
[2024-12-09 17:30] LABS: Glucose - Point of Care 66 mg/dl (70-99)
[2024-12-09] MEDS: NOVOLOG FLEXPEN SC (17:33)
[2024-12-09] MEDS: LOVENOX 40 MG SC (17:34)
[2024-12-09 17:53] LABS: Glucose - Point of Care 105 mg/dl (70-99)
--- NOTE | 2024-12-09 17:56 | PTCARENOTE ---
Accu check pre dinner 57, given 4oz OJ as per protocol. Notified Dr. Buck of accu check, to give only 6 units of novolog with his meal rather than usual 16 units however repeat accu check still 66. Notified Dr. Buck, holding dinner pre meal accu check.
Patient ate dinner, accu check now 105.
[2024-12-09 21:28] LABS: Glucose - Point of Care 259 mg/dl (70-99)
[2024-12-10] VITALS (13 sets, daily range): BP systolic 97–137; BP diastolic 53–88; PULSE 59; O2SAT 99; BMI 25.8
--- NOTE | 2024-12-10 00:03 | PTCARENOTE ---
received patient at the change of shift. AAOx3. patient states feeling much better. possible cardiac cath tomorrow. answered patients questions. SB/SR with a first degree AVB on tele- 50s-70s. bp stable. 95% on RA. reviewed plan of care with patient
and verbalized understanding. steady on his feet oob. urinating yellow urine in the BSU. calls appropriately.
[2024-12-10 03:41] LABS: % Basophils 0.4 % (0-2); % Eosinophils 2.5 % (0-6); % Immature Granulocytes 0.3 % (0-0.5); % Lymphocytes 22.5 % (20.5-51.1); % Monocytes 14.7 % (1.7-9.3); % Neutrophils 59.6 % (42.2-75.2); Absolute Eosinophils 0.2 10^3/uL (0-0.7); Absolute Lymphocytes 2.2 10^3/uL (1.2-3.4); Absolute Monocytes 1.4 10^3/uL (0.1-0.6); Absolute Neutrophils 5.7 10^3/uL (1.4-6.5); Hematocrit 38.9 % (39.0-52.0); Hemoglobin 13.2 g/dL (13.0-18.0); Mean Corp Hgb Conc. 33.9 g/dL (33.0-37.0); Mean Corpuscular Hgb 31.1 pg (27.0-31.0); Mean Corpuscular Volume 91.5 fL (80.0-94.0); Mean Platelet Volume 10.5 fL (7.4-10.4); Nucleated Red Blood Cells % 0 % (-); Platelet Count 223 10^3/uL (130-400); Red Blood Cell Count 4.25 10^6/uL (4.70-6.10); Red Cell Dist. Width 13.2 % (11.5-14.5); White Blood Cell Count 9.6 10^3/uL (4.8-10.8)
[2024-12-10 04:07] LABS: Blood Urea Nitrogen 43 mg/dl (9-20); Carbon Dioxide 26 mmol/L (22-30); Chloride 102 mmol/L (98-107); Estimated Creatinine Clearance 48 ml/min; Glucose 133 mg/dl (70-99); Potassium 4.1 mmol/L (3.5-5.1); Sodium 136 mmol/L (135-145); eGFR 54.85
[2024-12-10 07:34] LABS: Glucose - Point of Care 139 mg/dl (70-99)
[2024-12-10] MEDS: ZESTRIL 20 MG PO (08:27)
[2024-12-10] MEDS: PLAVIX 75 MG PO (08:27)
[2024-12-10] MEDS: ASPIR LOW (ENTERIC COATED) 81 MG PO (08:27)
[2024-12-10] MEDS: LIPITOR 80 MG PO (08:29)
[2024-12-10] MEDS: NOVOLOG FLEXPEN SC (08:37)
[2024-12-10] MEDS: NOVOLOG FLEXPEN-MODERATE RESISTANCE SC ×3 (08:38→17:24)
--- NOTE | 2024-12-10 09:09 | W.PN.CD ---
Today's Communication / Plan
-
Cardiac catheterization today.
AVR workup.
Start dapagliflozin 10 mg daily tomorrow.
Echocardiogram pending.
Impression / Plan
-
Impression/Plan: 84 y/o male with PAD s/p bilateral SFA stents, HTN, IDDM, history of CVA and severe aortic valve stenosis admitted with acute heart failure, ejection fraction normal as of 01/06/2023.
#Acute heart failure, unknown ejection fraction
-Acute, improving.
-ProBNP 2059, CXR with CHF.
-Echocardiogram pending.
-Cardiac catheterization today to clarify filling pressures as well as a preamble to valve replacement.
-Continue lisinopril.
-Add dapagliflozin 10 mg daily post cath.
-Cath/echo will clarify need for beta jalen.
#Severe aortic valve stenosis
-Chronic, progressive.
-Prior peak/mean gradients 80/45mmHg on echo 12/2022.
-Echocardiogram today.
-With aortic stenosis and development of heart failure will assess for TAVR versus SAVR.
-Cardiac catheterization today.
#Elevated troponin
-Acute.
-Troponin = 0.449.
-Suspect non-MD troponin in setting of heart failure and severe aortic stenosis. But with presentation of heart failure and the need for pre-AVR evaluation we will plan for catheterization.
-Continue aspirin 81 mg daily.
#HTN
-Chronic, stable.
-Continue lisinopril.
#CVA
-Chronic (2016), stable without neurologic deficit.
-Continue ASA, clopidogrel and statin.
#PAD
-Chronic, severe.
-s/p left SFA stent 2020 (overlapping 6 x 120 Cook Zilver PTX stent and 6 x 60 Zilver PTX stent).
-s/p right SFA stents 2019 (overlapping 6 x 140 Cook Zilver PTX stent x2 and a 6 x 60 Zilver PTX stent).
-Followed by Dr. Hernandez as outpatient.
-Continue DAPT, statin.
#IDDM
-Chronic, stable on insulin for 12 years.
-Management per hospitalist.
#Tobacco abuse
-Chronic, still smoking 2-3 cigarettes a day.
-Smoking cessation reviewed with patient, he verbalized understanding.
Subjective/Interval History:
No acute events.
Weaning from oxygen.
DATA:
Transthoracic echocardiogram, 01/06/2023:
CONCLUSIONS
Hyperdynamic left ventricular systolic function. Mild concentric left
ventricular hypertrophy.
Left ventricular ejection fraction is 70% .
Moderately dilated left atrium.
Severe aortic stenosis. Peak/mean gradients are 80/45 mmHg. the MARIAN calculates
to be 0.9 cm2.
No other significant valvular disease.
Compared to prior study of 06/22/22 the previous aortic valve gradients were
74/43 mmHg, with estimated aortic valve area 1.2 cm2
Physical Exam
Vital Signs/Labs
Vital Signs
Temp Pulse Resp BP Pulse Ox
36.6 C 68 18 131/63 97
12/10/24 07:30 12/10/24 08:00 12/10/24 07:30 12/10/24 07:26 12/10/24 07:30
12/08/24 12/09/24 12/10/24
11:59 11:59 11:59
Actual Weight 90.2 kg 87.4 kg 86.2 kg
12/10/24 03:07
12/10/24 03:07
PT 13.0 Sec (11.4-14.6) 12/08/24 06:47
INR 0.95 12/08/24 06:47
APTT 30.9 Sec (23.4-35.0) 12/08/24 06:47
Magnesium 2.0 mg/dl (1.6-2.3) 12/10/24 03:07
12/08/24
06:47
Qbd-O-Btfslqsyifc Pept 2059
LAB Results
12/08/24 12/08/24 12/08/24
06:47 12:51 18:23
Troponin I 0.077 H* 0.378 H* D 0.449 H*
12/09/24 12/09/24
00:34 06:30
Troponin I 0.395 H* Cancelled
Physical Exam
Constitutional: No acute distress and Comfortable
EENT: Anicteric and Moist mucous membranes
Cardiovascular: Rhythm & rate is regular, Pedal edema is absent, JVD pressure is normal, Systolic murmur present and S1S2 is normal
Respiratory: Respiratory effort normal, Lungs clear to auscul., Wheeze Absent, Crackles Absent and Rhonchi Absent
GI: Soft, Distention absent, Flat, Non tender and Normal bowel sounds
Neuro/Psych: AO x 3
Data Reviewed
-
Date of Service: December 10, 2024
Medical Decision Making: Reviewed Test Results, Independent Historian Assessment and Test Interpretation
EKG: Tracing Personally Visualized and interpreted and Report Reviewed by me
X-Ray/CT/US/MRI/NUC/PET: Image Personally Visualized and interpreted and Report Reviewed by me
Labs: Labs Reviewed by me
Old Records: Reviewed
--- NOTE | 2024-12-10 09:37 | W.PN.CD ---
Today's Communication / Plan
-
Echocardiogram
Cardiac catheterization today
Additional recommendations based on result.
Impression / Plan
-
Impression/Plan: 84 y/o male with PAD s/p bilateral SFA stents, HTN, IDDM, history of CVA and severe aortic valve stenosis admitted with acute heart failure, ejection fraction normal as of 01/06/2023.
#Acute heart failure, unknown ejection fraction
-Acute, improving.
-ProBNP 2059, CXR with CHF.
-Echocardiogram 12/10/2024
-Cardiac catheterization today to evaluate for coronary artery disease considering exertional chest discomfort, mild elevation in troponin and heart failure. Patient also will need cardiac catheterization as part of a pre-AVR evaluation.
#Severe aortic valve stenosis
-Chronic, progressive.
-Prior peak/mean gradients 80/45mmHg on echo 12/2022.
-Echocardiogram today.
-With aortic stenosis and development of heart failure will assess for TAVR versus SAVR.
-Cardiac catheterization today.
-Note patient has significant PAD which could limit access issues for TAVR
#Elevated troponin
-May be non-UT troponin related to combination of heart failure and severe aortic stenosis. However will await results of cardiac catheterization as noted above
#HTN -stable
-
#CVA
-Chronic (2016), stable without neurologic deficit.
-Continue ASA, clopidogrel and statin.
#PAD
-Chronic, severe.
-s/p left SFA stent 2020 (overlapping 6 x 120 Cook Zilver PTX stent and 6 x 60 Zilver PTX stent).
-s/p right SFA stents 2019 (overlapping 6 x 140 Cook Zilver PTX stent x2 and a 6 x 60 Zilver PTX stent).
-Followed by Dr. Hernandez as outpatient.
-Continue DAPT, statin.
#IDDM
-Chronic, stable on insulin for 12 years.
-Management per hospitalist.
#Tobacco abuse
-Chronic, still smoking 2-3 cigarettes a day.
-Smoking cessation reviewed with patient, he verbalized understanding.
Subjective/Interval History:
No acute events.
Weaning from oxygen.
DATA:
Transthoracic echocardiogram, 01/06/2023:
CONCLUSIONS
Hyperdynamic left ventricular systolic function. Mild concentric left
ventricular hypertrophy.
Left ventricular ejection fraction is 70% .
Moderately dilated left atrium.
Severe aortic stenosis. Peak/mean gradients are 80/45 mmHg. the MARIAN calculates
to be 0.9 cm2.
No other significant valvular disease.
Compared to prior study of 06/22/22 the previous aortic valve gradients were
74/43 mmHg, with estimated aortic valve area 1.2 cm2
Physical Exam
Vital Signs/Labs
Vital Signs
Temp Pulse Resp BP Pulse Ox
97.8 F 68 18 131/63 97
12/10/24 07:30 12/10/24 08:00 12/10/24 07:30 12/10/24 07:26 12/10/24 07:30
12/09/24 12/10/24 12/11/24
06:59 06:59 06:59
Actual Weight 87.4 kg 86.2 kg
12/10/24 03:07
12/10/24 03:07
PT 13.0 Sec (11.4-14.6) 12/08/24 06:47
INR 0.95 12/08/24 06:47
APTT 30.9 Sec (23.4-35.0) 12/08/24 06:47
Magnesium 2.0 mg/dl (1.6-2.3) 12/10/24 03:07
12/08/24
06:47
Mzh-O-Jwsfoylzxrh Pept 2059
LAB Results
12/08/24 12/08/24 12/08/24
06:47 12:51 18:23
Troponin I 0.077 H* 0.378 H* D 0.449 H*
12/09/24 12/09/24
00:34 06:30
Troponin I 0.395 H* Cancelled
Physical Exam
Constitutional: No acute distress
Cardiovascular: Rhythm & rate is regular
Respiratory: Respiratory effort normal
GI: Soft and Non tender
Neuro/Psych: Alert, Oriented and AO x 3
Data Reviewed
-
Date of Service: December 10, 2024
Medical Decision Making: Reviewed Test Results
Echo: Report Reviewed by me and Other (Ordered and pending)
Medical Tests (PFT, Pathology etc): Report Reviewed by me
Labs: Labs Reviewed by me
--- NOTE | 2024-12-10 09:45 | W.PN.HOSP.TC ---
Today's Communication/Plan
-
Echo
Cardiac catheterization
Assessment / Plan
Assessment / Plan
Gen-AAOx3, NAD
HEENT-NC, AT, anicteric, clear oral mm
Neck-supple
CV-reg, no M, +S1/S2
Lungs-clear B/L
Abd-soft, NT, ND
Ext-no edema
Musculoskeletal-no cyanosis, clubbing
Skin-warm and dry
Neuro-grossly non-focal
Psych-calm, cooperative
Acute heart failure with preserved EF - in the setting of with presentation of acute pulmonary edema. Weight is down 4 kg since admission.
Lasix discontinued by cardiology.
Plan to obtain echocardiogram today
Would not use nitro to avoid hypotension in the setting of
Plan for cardiac cath today.
Acute hypoxic respiratory failure -
Evidence of tachypnea, respiratory distress, increased work of breathing and require BiPAP. Unclear oxygenation status if hypoxic or not since documentation shows normal oxygenation.
Off BiPAP.
Bronchodilators changed to as needed
Monitor respiratory status closely
Severe arctic stenosis:
Cardiology evaluation for timing of replacement
Plan to update echo
Plan for cardiac cath pre-aortic valve replacement evaluation
Elevated troponin:
Non-VT troponin in the setting of heart failure and severe aortic stenosis.
Leukocytosis -likely leukemoid reaction due to acute illness. No evidence of infection.
Essential hypertension:
Antihypertensives
Monitor blood pressure closely
Hyperlipidemia:
Continue statin
PAD
Continue antiplatelets and statins
Status post right and left SFA stents in the past
History of stroke
Neurologically intact
Continue antiplatelets and statin
DM2 with hyperglycemia -glucose 133 this morning. At home he is on Lantus 15 units daily, aspart 16 units with lunch, 24 units with breakfast and dinner.
In the hospital he is on Lantus 28 units daily, aspart 16 units AC, moderate resistance aspart scale.
Hold glargine today given n.p.o. status. Hold aspart.
Diabetic diet
Insulin sliding scale
Continue home insulin regimen
HBA1c 7.3
Monitor blood sugar and adjust medications according
Tobacco dependence
Advised smoking cessation
Will continue nicotine patch
DVT prophylaxis:
Lovenox SQ
CODE STATUS:
Full code
Anticipated Discharge: > 48 hours
Subjective/Interval History
-
Date of Service: December 10, 2024
Patient seen and examined. No complaints.
Objective Data
-
Labs:
Laboratory Results
12/10/24
03:07
WBC 9.6
Hgb 13.2
Hct 38.9 L
Plt Count 223
Sodium 136
Potassium 4.1
Chloride 102
Carbon Dioxide 26
BUN 43 H
Creatinine 1.3
Glucose 133 H
Calcium 9.0
Vital Signs:
Vital Signs
Temp Pulse Resp BP Pulse Ox
97.8 F 68 18 131/63 97
12/10/24 07:30 12/10/24 08:00 12/10/24 07:30 12/10/24 07:26 12/10/24 07:30
I&O
12/09/24 12/10/24 12/11/24
06:59 06:59 06:59
Intake Total 480 / 480 1200 / 1200
Output Total 2200 / 2200 1974 / 1974
Balance -1720 / -1720 -775 / -775
Review of Systems
-
History Source: Patient
All other systems: Reviewed and negative
[2024-12-10] MEDS: NON-FORMULARY ITEM 1 DROP BOTH EYES ×2 (11:01→19:27)
--- NOTE | 2024-12-10 11:36 | ITS.CL.CATH ---
Electrical Instrument Technician - Catheterization
Cardiac Catheterization
Procedure Report:
CARDIAC CATHETERIZATION REPORT
Date of Procedure: 12/10/2024
Referring: Rafy Leal M.D.
Indication: Severe aortic valve stenosis, decompensated heart failure.
PROCEDURE:
1. Right heart catheterization.
2. Coronary angiography.
A total of 9 minutes of procedural/moderate sedation was utilized. An independent medical imaging specialist was present to assist with and help manage the patient's level of consciousness and physiologic status.
ACCESS:
1. 6 [place] right radial artery using a modified Seldinger technique under ultrasound guidance. Ultrasound image obtained.
2. 5 [place] right antecubital vein using a modified Seldinger technique under ultrasound guidance. Ultrasound image obtained.
CATHETERS:
1. 5 [place] balloon wedge.
2. 5 [place] JR4.
3. 5 [place] JL 3.5.
HEMODYNAMIC DATA
Weight (kg): 87.1
AO (s/d/x mmHg): 150/70/98
LV (s/x mmHg): Not obtained.
PCWP (a/v/x mmHg): 24/22/21
PA (s/d/x mmHg): 46/25/32
RV (s/x mmHg): 46/12
RA (a/v/x mmHg): 15/14/12
SVC SvO2 (%): 70.8
IVC SvO2 (%): Not obtained.
RA SvO2 (%): Not obtained.
RV SvO2 (%): Not obtained.
PA SvO2 (%): 68.3
SaO2 (%): 93.7
Hbg (g/dL): 14.5
JUJU
CO (L/min): 4.79
CI (L/min/m2): 2.29
Thermodilution
CO (L/min): Not obtained.
CI (L/min/m2): Not obtained.
TPG (mmHg): 11
PVR ([place]eno Units): 2.30
SVR (dynes*seconds*cm^-5): 1436
AVO2 Diff (Volume %): 5.01
AV gradient (x, mmHg): Not obtained.
AV area (cm2): Not obtained.
MV gradient (x, mmHg): Not obtained.
MV area (cm2): Not obtained.
LEFT VENTRICULOGRAPHY: Not performed.
AORTOGRAPHY: Not performed.
CORONARY ANGIOGRAPHY
Dominance: Right.
Left Main: Normal size, trifurcating vessel. There is no coronary artery disease.
LAD: Normal size vessel giving rise to 1, small diagonal. There are minor luminal irregularities. There is a 30% lesion in the mid LAD, after the takeoff of the small diagonal.
Ramus: Medium to large size vessel which bifurcates into 2 separate branches. There is a 50% lesion in the proximal margin of the ramus.
Circumflex: Small size vessel that is essentially a single marginal. There is no significant coronary artery disease.
RCA: Large size, dominant vessel with a large posterolateral arcade that is essentially serving as the left circumflex territory. There is a 40% lesion in the proximal margin of the right posterolateral branch.
INTERVENTIONS
None.
Closure Device: Vascular band for the right radial artery, manual pressure for the right antecubital vein.
Radiation dose (mGy): 430.14
DAP (cm2.Gy): 30.5762
Fluoroscopy time (minutes): 3.4
CONCLUSIONS:
1. Right dominant circulation with a 30% lesion in the mid LAD, a 50% lesion in the proximal margin of the ramus and a 40% lesion in the proximal margin of the right posterolateral branch.
2. Moderately elevated filling pressures (PCWP = 21 mmHg at 87.1 kg).
3. Severe aortic valve stenosis by echocardiogram.
4. Preserved cardiac function (cardiac index = 2.29 L/min/m�).
5. Mild, postcapillary pulmonary hypertension (mean PA = 32 mmHg, PCWP = 21 mmHg, cardiac output 4.79 L/min/m�, PVR = 2.30 Rneo units).
RECOMMENDATIONS:
1. Expectant management after cardiac catheterization via right radial/antecubital approach.
2. Limited weight bearing on the right wrist for one week.
3. Echocardiogram ordered and pending.
4. TAVR evaluation.
5. Guideline directed medical therapy as hemodynamics will tolerate.
Copy to: Rafy Leal M.D., Isai Olsen M.D.
Heriberto Barksdale DO, FACC, FACP
[2024-12-10] MEDS: NOVOLOG FLEXPEN 16 UNITS SC (12:36)
[2024-12-10 12:47] LABS: Glucose - Point of Care 147 mg/dl (70-99)
[2024-12-10] MEDS: LANTUS 0.28 UNITS SC (12:55)
--- NOTE | 2024-12-10 13:39 | CARDSERVDEF ---
Echocardiogram with Definity completed after protocol screening completed. Allergies verified.
Patent IV site: __L AC___
IV site flushed with 0.9% NaCl pre and post administration.
Diluted bolus method utilized to enhance visualization of ventricular blum.
Total volume given: _4___ mL
Patient tolerated all procedures well without complications.
--- NOTE | 2024-12-10 14:35 | PTCARENOTE ---
Pt returned post cath at 1100. Right radial band intact with good radial pulse. Denies any pain or discomfort.
--- NOTE | 2024-12-10 15:26 | CONSULT.STRU ---
Consultation
-
Date/Time Consultation Requested: 12/10/2024
Date/Time Consultation Performed: 12/10/2024
Requesting Provider: Heriberto Barksdale
Performing Provider: KAITLYNN Rubio
Reason for Consultation: Aortic stenosis/ TAVR evaluation
Patient History
Physicians
Family Physician: Isai Olsen
Outpatient Storage Wharfage Clerk: former patient of Srinivascarol Rodríguez
Primary Storage Wharfage Clerk: former patient of Srinivas Mirza
History of Present Illness
Patient is an 84-year-old male, formally followed by Dr. Rodríguez, who has a history of severe aortic stenosis with mean gradient of 45 mmHg based on echocardiogram 01/06/2023, PAD (bilateral SFA stenting), hypertension, diabetes, hemochromatosis,
history of CVA 2017 and smoking who presents with shortness of breath. Patient's had some exertional shortness of breath for months. He states that sometimes when he carries his briefcase from the car to his office he will even have some shortness
of breath and almost feels like he has some burning in his chest. Over the past week he has had increased exertional shortness of breath but has not had chest discomfort. Patient then had abrupt increase in shortness of breath that woke him from
sleep. No chest pain or palpitations at that time. He presented to the ER for evaluation and was found to be in HF. Echocardiogram was repeated today and was norable for EF 65-70%, Severe PG/M/59, MARIAN: 0.5-0.6, No AI, Mild TR. Cardiac cath
was notable for Right dominant circulation with a 30% lesion in the mid LAD, a 50% lesion in the proximal margin of the ramus and a 40% lesion in the proximal margin of the right posterolateral branch. Moderately elevated filling pressures (PCWP =
21 mmHg at 87.1 kg). Preserved cardiac function (cardiac index = 2.29 L/min/m�). Mild, postcapillary pulmonary hypertension (mean PA = 32 mmHg, PCWP = 21 mmHg, cardiac output 4.79 L/min/m�, PVR = 2.30 Reno units). .
Reviewed the pathophysiology of aortic stenosis with the patient and his . Explained the treatment options of SAVR and TAVR. Explained the TAVR evaluation process including follow up BMP, CT TAVR scan, CT surgery consult and Heart Team
discussion. Provided with script for BMP next week, script and appointment for CT TAVR, Consult appointment with Dr. Shook and a copy of the TAVR education booklet with contact information. Allowed for and answered questions.
Past Medical History
Past Medical History: CAD, CHF, COPD (probable but not formally diagnosed), CVA/TIA (TIA 2017), AVELAR, HTN, Hypercholesterolemia, IDDM, Valvular Disease (Aortic Stenosis, Mild TR) and Other (PAD, Hemochromotosis, Glaucoma, right carpel tunnel)
Past Surgical History
Past Surgical History: Other (Double front sinusotomy, retinal surgery, cataract surgery, laser eye treatment, removal left eyelid cyst, right carpel tunnel release, Arteriogram and bilateral SFA stents, right knee surgery)
Dental History
Regular Dental Care: [facility] in [place]
Family History
Mother: at Age (100yo, DM )
Father: at Age (32yo, MVA)
Social History
Alcohol: Occasional
Drug: None
Tobacco: Smoker (recently 2-3 cigarettes per day but prior 1PPD x 50 years)
Personal:
Living: With Spouse
Employment: Employed ([employer])
Allergies
Allergy/AdvReac Type Severity Reaction Status Date / Time
No Known Allergies Allergy Verified 06/18/21 06:32
Home Medications
�Medication �Instructions �Recorded �Confirmed �Type
insulin aspart U-100 100 unit/mL 24 units SC .BREAKFAST,DINNER 04/23/13 12/08/24 History
(3 mL) subcutaneous pen (Novolog Diabetes
FlexPen U-100 Insulin aspart)
insulin glargine 100 unit/mL 15 units SC DAILY 07/30/13 12/08/24 History
subcutaneous solution (Lantus
U-100 Insulin)
aspirin 81 mg tablet,delayed 81 mg PO DAILY Blood Clot 04/17/20 12/08/24 History
release Prevention/Tx
atorvastatin 80 mg tablet 80 mg PO DAILY High Cholesterol 04/17/20 12/08/24 History
clopidogrel 75 mg tablet 75 mg PO DAILY Blood Clot 04/17/20 12/08/24 History
Prevention/Tx
lisinopril 20 mg tablet 20 mg PO DAILY Blood Pressure 04/17/20 12/08/24 History
brimonidine 0.2 %-timolol 0.5 % 1 drp ophthalmic (eye) BID Eye 06/11/21 12/08/24 History
eye drops (Combigan) Condition
insulin aspart U-100 100 unit/mL 16 unit SQ .LUNCH 06/11/21 12/08/24 History
subcutaneous solution (Novolog
U-100 Insulin aspart)
STS%
STS %: 2.92%
Review of Systems
-
History Source: Patient and Family
General: Denies Fever or Fatigue
HEENT: Reports No Symptoms
Respiratory: Reports SOB, AVELAR, Cough ('smokers cough') and PND
Cardiac: Reports Chest Pain ('chest burning'), CAD, Known Vascular Disease and Edema (occasional sherlyn. LE); Denies Palpitations
Abdomen/GI: Reports No Symptoms; Denies Abdominal Pain, Reflux, Nausea or Vomiting
: Reports Frequency; Denies Hematuria
Musculoskeletal: Reports No Symptoms
Skin: Reports No Symptoms
Neurological: Reports TIA (2018) and Numbness (bilateral toes); Denies Headaches, Syncope or Dizzy
Vascular: Reports PVD
Physical Exam
Vital Signs
Temp 97.8 F 12/10/24 07:30
Temp route: Oral 12/10/24 07:30
Pulse 61 12/10/24 14:00
Rhythm: Sinus bradycardia 12/10/24 08:00
With- Normal sinus rhythm 12/10/24 08:00
Resp Rate 18 12/10/24 07:30
Blood pressure 116/83 12/10/24 13:00
Blood pressure extremity used: Right upper arm 12/10/24 07:30
Position: Sitting 12/10/24 07:30
MAP (cuff-Reji Monitor) 92 12/10/24 13:00
SaO2 97 12/10/24 12:00
Nasal Cannula flow liters per minute 2 12/09/24 08:55
Oxygen Mode of Delivery Room air 12/10/24 08:00
Flow liters per minute # 10 12/08/24 06:40
Can the patient verbally communicate their pain? Yes 12/10/24 08:00
Actual Weight 86.2 kg 12/10/24 07:30
Body Mass Index (BMI) 25.8 12/10/24 07:30
Labs
12/10/24 03:07
12/10/24 03:07
PT 13.0 Sec (11.4-14.6) 12/08/24 06:47
APTT 30.9 Sec (23.4-35.0) 12/08/24 06:47
Hemoglobin A1c 7.3 % (4.0-5.6) H 12/09/24 03:20
Troponin I Cancelled 12/09/24 06:30
Cwo-Z-Imunitgrwws Pept 2060 pg/ml 12/08/24 06:47
Diagnostic Studies
12/10/2024 Echocardiogram:
FINDINGS
Left Ventricle
Normal left ventricular chamber size. Hyperdynamic left ventricular systolic
function. Mild concentric left ventricular hypertrophy. Normal regional wall
motion. Left ventricular ejection fraction is 65-70% .
Right Ventricle
Normal right ventricular size and function.
Left Atrium
Indexed LA volume is within normal range (15-34 mL/m2).
Right Atrium
Normal right atrium.
Mitral Valve
Mildly thickened mitral valve leaflets. There is adequate mitral leaflet
excursion. No mitral regurgitation is seen.
Aortic Valve
Thickened aortic valve with restricted leaflet motion. Severe aortic stenosis.
Peak/mean gradients across the aortic valve are 96/59mmHg. Using an LVOT
diameter of 1.9 cm., the aortic valve by the Continuity equation is calculated
at 0.5 -0.6. (Note there were multiple gradients suggesting peak gradient of 70
and mean 44 mmHg but then there was 1 to higher gradient with peak 96 mmHg and
mean 59 mmHg). dimensionless index 0.2. No aortic regurgitation is seen. cm2.
Tricuspid Valve
Tricuspid valve opens normally. Mild tricuspid regurgitation. Estimated
pulmonary artery pressure of 18 mmHg assuming a right atrial pressure of 3
mmHg.
Pulmonic Valve
Pulmonic valve is grossly normal but poorly visualized.
Pericardium\\Pleura
No pericardial effusion.
Aorta
The aortic root is normal in caliber.
Other Finding
The IVC is of normal size and demonstrates normal respiratory variation.
Interatrial septum is intact with no evidence of shunting by color flow
Doppler. No intracardiac mass or thrombus formation seen.
MEASUREMENTS (Male / Female) Normal Values
2D ECHO
LV Diastolic Diameter PLAX 4.9 cm 4.2 - 5.9 / 3.9 - 5.3 cm
LV Systolic Diameter PLAX 3.7 cm
IVS Diastolic Thickness 1.3 cm 0.6 - 1.0 / 0.6 - 0.9 cm
LVPW Diastolic Thickness 1.1 cm 0.6 - 1.0 / 0.6 - 0.9 cm
LV Relative Wall Thickness 0.5
LVOT Diameter 1.9 cm
LA Area 4C View 13.2 cm2 <= 20 cm2
LA Length 4C 4.8 cm
LA Volume 29.7 cm3 18 - 58 / 22 - 52 cm3
LA Volume Index 19.0 cm3/m2 16 - 34 cm3/m2
RV Diastolic Basal Diameter 3.2 cm 2.0 - 2.8 cm
RV Diastolic Mid Diameter 2.5 cm 2.7 - 3.3 cm
Aorta at Sinotubular Diameter 3.0 cm
Ascending Aorta Diameter 3.0 cm
Aorta at Sinuses Diameter 3.3 cm
DOPPLER
AV Peak Velocity 489.0 cm/s
AV Peak Gradient 95.6 mmHg
AV Mean Gradient 59.0 mmHg
AV Velocity Time Integral 91.2 cm
LVOT Peak Velocity 90.7 cm/s
LVOT Peak Gradient 3.3 mmHg
LVOT Velocity Time Integral 21.0 cm
LVOT Stroke Volume 59.5 cm3
LVOT Stroke Volume Index 28.0 ml/m2 empty
LVOT Cardiac Index 1624.8 cm3/min
AV Area Cont Eq vti 0.7 cm2
AV Area Cont Eq pk 0.5 cm2
MV Area PHT 2.5 cm2
Mitral E Point Velocity 59.1 cm/s
Mitral A Point Velocity 96.0 cm/s
Mitral E to A Ratio 0.6
LV E' Lateral Velocity 6.1 cm/s
Mitral E to LV E' Lateral Ratio 9.7
LV E' Septal Velocity 5.0 cm/s
Mitral E to LV E' Septal Ratio 11.8
TR Peak Velocity 197.0 cm/s
TR Peak Gradient 15.5 mmHg
12/10/2024 Cardiac Catheterization:
HEMODYNAMIC DATA
Weight (kg):87.1
AO (s/d/x mmHg): 150/70/98
LV (s/x mmHg): Not obtained.
PCWP (a/v/x mmHg):
PA (s/d/x mmHg): /
RV (s/x mmHg): 46/12
RA (a/v/x mmHg): 15
SVC SvO2 (%):70.8
IVC SvO2 (%):Not obtained.
RA SvO2 (%):Not obtained.
RV SvO2 (%):Not obtained.
PA SvO2 (%):68.3
SaO2 (%):93.7
Hbg (g/dL):14.5
JUJU
CO (L/min): 4.79
CI (L/min/m2): 2.29
Thermodilution
CO (L/min):Not obtained.
CI (L/min/m2):Not obtained.
TPG (mmHg): 11
PVR (Reno Units): 2.30
SVR (dynes*seconds*cm^-5): 1436
AVO2 Diff (Volume %): 5.01
AV gradient (x, mmHg):Not obtained.
AV area (cm2):Not obtained.
MV gradient (x, mmHg):Not obtained.
MV area (cm2):Not obtained.
LEFT VENTRICULOGRAPHY: Not performed.
AORTOGRAPHY:Not performed.
CORONARY ANGIOGRAPHY
Dominance: Right.
Left Main: Normal size, trifurcating vessel. There is no coronary artery disease.
LAD: Normal size vessel giving rise to 1, small diagonal. There are minor luminal irregularities. There is a 30% lesion in the mid LAD, after the takeoff of the small diagonal.
Ramus:Medium to large size vessel which bifurcates into 2 separate branches. There is a 50% lesion in the proximal margin of the ramus.
Circumflex: Small size vessel that is essentially a single marginal. There is no significant coronary artery disease.
RCA: Large size, dominant vessel with a large posterolateral arcade that is essentially serving as the left circumflex territory. There is a 40% lesion in the proximal margin of the right posterolateral branch.
INTERVENTIONS
None.
Closure Device: Vascular band for the right radial artery, manual pressure for the right antecubital vein.
Radiation dose (mGy): 430.14
DAP (cm2.Gy): 30.5762
Fluoroscopy time (minutes):3.4
CONCLUSIONS:
1. Right dominant circulation with a 30% lesion in the mid LAD, a 50% lesion in the proximal margin of the ramus and a 40% lesion in the proximal margin of the right posterolateral branch.
2. Moderately elevated filling pressures (PCWP = 21 mmHg at 87.1 kg).
3. Severe aortic valve stenosis by echocardiogram.
4. Preserved cardiac function (cardiac index = 2.29 L/min/m�).
5. Mild, postcapillary pulmonary hypertension (mean PA = 32 mmHg, PCWP = 21 mmHg, cardiac output 4.79 L/min/m�, PVR = 2.30 [place] units).
RECOMMENDATIONS:
1. Expectant management after cardiac catheterization via right radial/antecubital approach.
2. Limited weight bearing on the right wrist for one week.
3. Echocardiogram ordered and pending.
4. TAVR evaluation.
5. Guideline directed medical therapy as hemodynamics will tolerate.
Exam
General: Well Developed, Well Nourished, No Apparent Distress and Comfortable
HEENT: Normocephalic, PERRLA and EOMI
Neck: Trachea Midline
Respiratory: Clear; Negative Wheezes, Crackles or Rhonchi
Cardiac: S1/S2, Regular Rhythm and Murmur (Grade III/ systolic murmur)
GI: Soft, Non Tender, Non Distended and Normal Bowel Sounds
Rectal: Deferred by Provider
Skin: Warm and Dry
Neuro: AO x 3 and Nonfocal/Grossly Intact
Extremities: Lower Level Edema (trace left lower extremity) and Pulses (+1 dp pulse, left slightly stronger than right)
Assessment / Plan
-
Procedure Type:�Isolated AVR
Perioperative Outcome Estimate %
Operative Mortality 2.92%
Morbidity & Mortality 11.9%
Stroke 3.14%
Renal Failure 3.09%
Reoperation 3.18%
Prolonged Ventilation 6.66%
Deep Sternal Wound Infection 0.169%
Long Hospital Stay (>14 days) 7.5%
Short Hospital Stay (<6 days)* 31.1%
Assessment:
Severe, symptomatic aortic stenosis
Plan:
Continue TAVR workup as outpatient
BMP on 12/17/[address] TAVR 12/21/2024
CT surgery consult with Dr. Shook 12/25/2024
Heart Team discussion
Dental clearance
Data Reviewed
-
EKG: Report Reviewed by me
Sales Representative Printing Supplies: Report Reviewed by me and Discussed with Physician
Echo: Report Reviewed by me and Discussed with Physician
Labs: Labs Reviewed by me
Old Records: Reviewed (prior echocardiograms and cardiology consult notes)
Laboratory Results
-
Laboratory Data
12/10/24 03:07
12/10/24 03:07
PT 13.0 Sec (11.4-14.6) 12/08/24 06:47
INR 0.95 12/08/24 06:47
APTT 30.9 Sec (23.4-35.0) 12/08/24 06:47
Total Bilirubin 0.6 mg/dl (0.2-1.3) 12/08/24 06:47
AST 25 U/L (17-59) 12/08/24 06:47
ALT 21 U/L (0-50) 12/08/24 06:47
Alkaline Phosphatase 126 U/L (38-126) 12/08/24 06:47
Total Protein 6.7 g/dl (6.3-8.2) 12/08/24 06:47
Albumin 4.0 g/dl (3.5-5.0) 12/08/24 06:47
--- NOTE | 2024-12-10 16:28 | CM ---
spoke to pt in room, he is prev indep, lives with his in a 1 stoey home with no steps toenter. he has a caneat home to use if needed. he denies any dc planning needs. plan is for dc to home when medically stabe.
[2024-12-10 17:24] LABS: Glucose - Point of Care 88 mg/dl (70-99)
[2024-12-10] MEDS: NOVOLOG FLEXPEN 14 UNITS SC (17:47)
[2024-12-10] MEDS: LOVENOX 40 MG SC (17:49)
--- NOTE | 2024-12-10 17:54 | PTCARENOTE ---
Accucheck before dinner was 88. Pt requested that his meal dose of Novolog insulin be 14 units instead of 16. Right rad site remains WNL.
--- NOTE | 2024-12-10 20:49 | PTCARENOTE ---
received patient at the change of shift. AAOx3. independent in the room. patient states feeling much better and eager to go home tomorrow. R arm cath sites intact. + pulses. mild discomfort per patient-refusing tylenol at this time. no swelling
noted. assisted patient with a partial bath. new sheets/gown. SB/SR with a first degree on tele- 50s-60s. bp stable. 95% and above on RA. reviewed activity restrictions with patient for tonight and at discharge. patient still works. patient
verbalizes understanding and states he has help. call kumari within reach. makes needs known.
[2024-12-10 21:59] LABS: Glucose - Point of Care 121 mg/dl (70-99)
[2024-12-11] VITALS (8 sets, daily range): BP systolic 89–152; BP diastolic 57–76; PULSE 71; BMI 25.8
[2024-12-11 08:03] LABS: Glucose - Point of Care 81 mg/dl (70-99)
[2024-12-11] MEDS: NOVOLOG FLEXPEN-MODERATE RESISTANCE SC (08:24)
[2024-12-11] MEDS: FARXIGA 10 MG PO (08:29)
[2024-12-11] MEDS: LIPITOR 80 MG PO (08:29)
[2024-12-11] MEDS: ASPIR LOW (ENTERIC COATED) 81 MG PO (08:29)
[2024-12-11] MEDS: ZESTRIL 20 MG PO (08:29)
[2024-12-11] MEDS: PLAVIX 75 MG PO (08:29)
[2024-12-11] MEDS: NOVOLOG FLEXPEN 12 UNITS SC (08:32)
[2024-12-11] MEDS: LANTUS 0.28 UNITS SC (08:33)
[2024-12-11] MEDS: NON-FORMULARY ITEM 1 DROP BOTH EYES (08:36)
--- NOTE | 2024-12-11 10:43 | W.PN.HOSP.TC ---
Addendum entered and electronically signed by Brennan Herring DO 12/11/24 12:55:
Acute nonischemic myocardial injury due to heart failure.
Original Note:
Today's Communication/Plan
-
Discharge
Assessment / Plan
Assessment / Plan
Gen-AAOx3, NAD
HEENT-NC, AT, anicteric, clear oral mm
Neck-supple
CV-reg, no M, +S1/S2
Lungs-clear B/L
Abd-soft, NT, ND
Ext-no edema
Musculoskeletal-no cyanosis, clubbing
Skin-warm and dry
Neuro-grossly non-focal
Psych-calm, cooperative
Acute heart failure with preserved EF - in the setting of with presentation of acute pulmonary edema. Weight is down 4 kg since admission.
Lasix discontinued by cardiology.
Plan to obtain echocardiogram today
Would not use nitro to avoid hypotension in the setting of
Cardiac catheterization completed yesterday, 30 to 50% lesions noted. Severe noted.
Acute hypoxic respiratory failure -
Evidence of tachypnea, respiratory distress, increased work of breathing and require BiPAP. Unclear oxygenation status if hypoxic or not since documentation shows normal oxygenation.
Off BiPAP.
Bronchodilators changed to as needed
Monitor respiratory status closely
Severe arctic stenosis:
Cardiology evaluation for timing of replacement, TAVR as outpatient
Elevated troponin:
Non-MO troponin in the setting of heart failure and severe aortic stenosis.
Leukocytosis -likely leukemoid reaction due to acute illness. No evidence of infection.
Essential hypertension:
Antihypertensives
Monitor blood pressure closely
Hyperlipidemia:
Continue statin
PAD
Continue antiplatelets and statins
Status post right and left SFA stents in the past
History of stroke
Neurologically intact
Continue antiplatelets and statin
DM2 with hyperglycemia -glucose 81 this morning. At home he is on Lantus 15 units daily, aspart 16 units with lunch, 24 units with breakfast and dinner.
In the hospital he is on Lantus 28 units daily, aspart 16 units AC, moderate resistance aspart scale.
Diabetic diet
Insulin sliding scale
Continue home insulin regimen
HBA1c 7.3
Monitor blood sugar and adjust medications according
Tobacco dependence
Advised smoking cessation
Will continue nicotine patch
DVT prophylaxis:
Lovenox SQ
CODE STATUS:
Full code
Dispo -medically stable for discharge home today. Outpatient follow-up.
32 minutes spent in discharge process.
Anticipated Discharge: Today
Subjective/Interval History
-
Date of Service: December 11, 2024
Patient seen and examined. No complaints.
Objective Data
-
Vital Signs:
Vital Signs
Temp Pulse Resp BP Pulse Ox
97.4 F 78 18 138/76 98
12/11/24 08:00 12/11/24 09:00 12/11/24 08:00 12/11/24 08:13 12/11/24 08:00
I&O
12/10/24 12/11/24 12/12/24
06:59 06:59 06:59
Intake Total 1200 / 1200 250 / 250
Output Total 1974 / 1974 450 / 450
Balance -775 / -775 -200 / -200
Review of Systems
-
History Source: Patient
All other systems: Reviewed and negative
--- NOTE | 2024-12-11 10:48 | W.DS.TRANS ---
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
-
Discharge Instructions:
Sleep Apnea Risk Low
Discharge Diagnosis/Procedures Acute heart failure exacerbation, severe aortic
stenosis, cardiac catheterization
Diet Low Fat,Low Cholesterol
Activity As tolerated
Driving Restrictions As prior to admission
Bathing Restrictions None
Blood Work Please have blood work (BMP) drawn on 12/17/2024.
This does not need to be fasting. Please have
results faxed to [phone].
Others Tests A CT scan has been scheduled for you at
[facility] on 12/21/2024 at 9:30am.
Please arrive 15 minutes prior to the main lobby
to register. Please do not eat or drink
anything after 6:30am. Please bring a complete
list of your medications with you.
Instructions: *CBC Heart Failure Instructions
Stand-Alone Forms: DC Instructions- Cath/EP Lab
Changes to Home Medications: No
Discharge Medications:
DC Medications w/original date entered in [employer]
insulin aspart U-100 100 unit/mL (3 mL) subcutaneous pen (Novolog FlexPen U-100 Insulin aspart) 24 units SC .BREAKFAST,DINNER Diabetes 04/23/13
insulin glargine 100 unit/mL subcutaneous solution (Lantus U-100 Insulin) 15 units SC DAILY 07/30/13
aspirin 81 mg tablet,delayed release 81 mg PO DAILY Blood Clot Prevention/Tx 04/17/20
atorvastatin 80 mg tablet 80 mg PO DAILY High Cholesterol 04/17/20
clopidogrel 75 mg tablet 75 mg PO DAILY Blood Clot Prevention/Tx 04/17/20
lisinopril 20 mg tablet 20 mg PO DAILY Blood Pressure 04/17/20
brimonidine 0.2 %-timolol 0.5 % eye drops (Combigan) 1 drp ophthalmic (eye) BID Eye Condition 06/11/21
insulin aspart U-100 100 unit/mL subcutaneous solution (Novolog U-100 Insulin aspart) 16 unit SQ .LUNCH 06/11/21
dapagliflozin propanediol 10 mg tablet 10 mg PO DAILY #30 tabs 12/11/24
Home Medication Changes
Pending Results: No
--- NOTE | 2024-12-11 12:02 | PTCARENOTE ---
Pt received this am with no c/o of any pain or sob. OOB ad arlyn in the room, gait steady. Right rad and brachial cath sites WNL with dressings dry and intact. Pt discharged to home with his . Discharge instructions given and reviewed with pt and
his . Pt verbalized understanding of instructions and all questions answered.
--- NOTE | 2024-12-11 12:26 | CM ---
ashley Wallit- spoke to pt, his farxiga is $200 for generic and $143 for brand. he is ok with brand burkett and he has a 30 day coupon
--- NOTE | 2024-12-11 12:38 | W.PN.CD ---
Addendum entered and electronically signed by Suleiman De Jesus MD 12/11/24 12:55:
Our office will send.
Addendum entered and electronically signed by Suleiman De Jesus MD 12/11/24 12:54:
Will add Lasix 20 mg a day per Dr. Leal
Original Note:
Today's Communication / Plan
-
Home today
Cardiology f/u arranged
TAVR workup in progress
Checking with Dr. Leal/Shamir about home off loop diuretic
Impression / Plan
-
Impression/Plan: 84 y/o male with PAD s/p bilateral SFA stents, HTN, IDDM, history of CVA and severe aortic valve stenosis admitted with acute heart failure, ejection fraction normal as of 01/06/2023.
#Acute heart failure, unknown ejection fraction
-Acute, improving.
-ProBNP 2059, CXR with CHF.
-Echocardiogram 12/10/2024
-Cardiac catheterization 12/10/2024, no complications
#Severe aortic valve stenosis
-Echo and cath yesterday
-TAVR team involved
-Workup underway
#Elevated troponin from a nonischemic myocardial injury for HF/
#HTN
#Remote CVA
#PAD (Hernandez) severe has been treated:
-s/p left SFA stent 2020 (overlapping 6 x 120 Cook Zilver PTX stent and 6 x 60 Zilver PTX stent).
-s/p right SFA stents 2019 (overlapping 6 x 140 Cook Zilver PTX stent x2 and a 6 x 60 Zilver PTX stent).
DM, insulin requiring
#Tobacco smoker, cessation has been reviewed this admit
Subjective/Interval History:
Eager for home
DATA:
Transthoracic echocardiogram, 01/06/2023:
CONCLUSIONS
Hyperdynamic left ventricular systolic function. Mild concentric left
ventricular hypertrophy.
Left ventricular ejection fraction is 70% .
Moderately dilated left atrium.
Severe aortic stenosis. Peak/mean gradients are 80/45 mmHg. the MARIAN calculates
to be 0.9 cm2.
No other significant valvular disease.
Compared to prior study of 06/22/22 the previous aortic valve gradients were
74/43 mmHg, with estimated aortic valve area 1.2 cm2
Physical Exam
Vital Signs/Labs
Vital Signs
Temp Pulse Resp BP Pulse Ox
98.2 F 65 16 110/62 98
12/11/24 11:36 12/11/24 11:36 12/11/24 11:36 12/11/24 11:36 12/11/24 08:00
12/10/24 12/11/24 12/12/24
06:59 06:59 06:59
Actual Weight 86.1 kg
12/10/24 03:07
12/10/24 03:07
PT 13.0 Sec (11.4-14.6) 12/08/24 06:47
INR 0.95 12/08/24 06:47
APTT 30.9 Sec (23.4-35.0) 12/08/24 06:47
Magnesium 2.0 mg/dl (1.6-2.3) 12/10/24 03:07
12/08/24
06:47
Bnj-G-Lfmowlsxyqd Pept 2059
LAB Results
12/08/24 12/08/24 12/09/24
12:51 18:23 00:34
Troponin I 0.378 H* D 0.449 H* 0.395 H*
12/09/24
06:30
Troponin I Cancelled
Physical Exam
Constitutional: No acute distress
EENT: Anicteric
Cardiovascular: Rhythm & rate is regular, Pedal edema is absent and Systolic murmur present
Respiratory: Respiratory effort normal and Lungs clear to auscul.
GI: Soft
Other: Cath Site (normal radial pulse, hand normal, no hematoma)
Data Reviewed
-
Date of Service: December 11, 2024
--- NOTE | 2024-12-11 12:47 | PN.CDI ---
CDI
- -
CDI:
Physician Documentation Request
Admit Date: 12/08/24 09:59
Dear Doctor Nevaeh,
Clinical Indicators:
Patient admitted with acute HFpEF.
12/11 PN, 'Elevated troponin: Non-VT troponin in the setting of heart failure and severe aortic stenosis.'
Troponin trend:
12/08/24 12/08/24 12/08/24
06:47 12:51 18:23
Troponin I 0.077 H* 0.378 H* D 0.449 H*
12/09/24
00:34
Troponin I 0.395 H*
Based on the above, could you clarify in the progress notes, the appropriate diagnosis, if significant, that supports the abnormal troponin levels:
Non ischemic myocardial injury
Elevated troponin only
Other
Use of terms such as suspected, likely, concern for, or probable (associated with a specific diagnosis that is being evaluated, monitored, or treated as if it exists) are acceptable and can be coded in the inpatient setting, when documented at the
time of discharge.
Thank you,
Angelica Tejada RN BSN
CDI Specialist
available via tiger text
Please use your independent medical judgment in providing your response.
== END 2024-12-11 12:36 | disposition home or self-care (01) | DRG 286 ==
LOC: IVU 09:59
PROVIDERS: Emergency Medicine; Internal Medicine Cardiovascular Disease; ADMITTING PHYSICIAN Hospitalist; ATTENDING PHYSICIAN Hospitalist; CONSULT PHYSICIAN Internal Medicine Cardiovascular Disease; EMERGENCY PHYSICIAN Student in an Organized Health Care Education/Training Program; FAMILY PHYSICIAN Internal Medicine Geriatric Medicine
PROC: 5A09357 Assistance with Respiratory Ventilation, Less than 24 Consecutive Hours, Continuous Positive Airway Pressure (ICD-10-PCS; 2024-12-08)
PROC: 4A023N6 Measurement of Cardiac Sampling and Pressure, Right Heart, Percutaneous Approach (ICD-10-PCS; 2024-12-10)
PROC: B211YZZ Fluoroscopy of Multiple Coronary Arteries using Other Contrast (ICD-10-PCS; 2024-12-10)
DX: I50.31 Acute diastolic (congestive) heart failure (principal); J96.01 Acute respiratory failure with hypoxia; I5A Non-ischemic myocardial injury (non-traumatic); I35.0 Nonrheumatic aortic (valve) stenosis; E11.51 Type 2 diabetes mellitus with diabetic peripheral angiopathy without gangrene; E78.5 Hyperlipidemia, unspecified; E83.119 Hemochromatosis, unspecified; F17.210 Nicotine dependence, cigarettes, uncomplicated; E11.65 Type 2 diabetes mellitus with hyperglycemia; J44.9 Chronic obstructive pulmonary disease, unspecified; I10 Essential (primary) hypertension; I27.29 Other secondary pulmonary hypertension; I25.10 Atherosclerotic heart disease of native coronary artery without angina pectoris; Z79.4 Long term (current) use of insulin; Z79.82 Long term (current) use of aspirin; Z79.02 Long term (current) use of antithrombotics/antiplatelets; Z79.899 Other long term (current) drug therapy; Z86.73 Personal history of transient ischemic attack (TIA), and cerebral infarction without residual deficits; Z11.52 Encounter for screening for COVID-19
CPT/HCPCS: 71045; 76937; 80048; 80053; 82962; 83036; 83605; 83735; 83880; 84484; 85025; 85610; 85730; 87502; 87811; 93005; 93306; 93456; 94640; 94660; 96365; 96366; 97162; 97166; 99291; C1894; Q9957; Q9967

== ENCOUNTER → 2024-12-17 12:48 | Outpatient (REF) | payer OTHER, SELFPAY ==
[2024-12-17 15:26] LABS: Blood Urea Nitrogen 47 mg/dl (9-20); Calcium 9.2 mg/dl (8.4-10.2); Carbon Dioxide 28 mmol/L (22-30); Chloride 102 mmol/L (98-107); Glucose 99 mg/dl (70-99); Potassium 4.5 mmol/L (3.5-5.1); Sodium 138 mmol/L (135-145); eGFR 46.19
== END ==
LOC: HWLAB 12:48
PROVIDERS: ATTENDING PHYSICIAN Nurse Practitioner Adult Health; FAMILY PHYSICIAN Internal Medicine Geriatric Medicine
DX: I35.0 Nonrheumatic aortic (valve) stenosis (principal)
CPT/HCPCS: 36415; 80048

== ENCOUNTER → 2024-12-21 08:15 | Outpatient (REF) | payer OTHER, SELFPAY | LOC: RAD 08:15 | PROVIDERS: ATTENDING PHYSICIAN Nurse Practitioner Adult Health; FAMILY PHYSICIAN Internal Medicine Geriatric Medicine | DX: I35.0 Nonrheumatic aortic (valve) stenosis (principal) | CPT/HCPCS: 75572; Q9967 ==

== ENCOUNTER → 2024-12-26 08:52 | Outpatient (REF) | payer OTHER, SELFPAY ==
[2024-12-26 15:15] LABS: Blood Urea Nitrogen 51 mg/dl (9-20); Calcium 9.4 mg/dl (8.4-10.2); Carbon Dioxide 27 mmol/L (22-30); Chloride 101 mmol/L (98-107); Glucose 183 mg/dl (70-99); Potassium 4.5 mmol/L (3.5-5.1); Sodium 138 mmol/L (135-145); eGFR 50.18
== END ==
LOC: HWLAB 08:52
PROVIDERS: ATTENDING PHYSICIAN Nurse Practitioner Adult Health; FAMILY PHYSICIAN Internal Medicine Geriatric Medicine
DX: I35.0 Nonrheumatic aortic (valve) stenosis (principal)
CPT/HCPCS: 36415; 80048

== ENCOUNTER → 2025-01-11 08:10 | Outpatient (REF) | payer OTHER, SELFPAY | LOC: RAD 08:10 | PROVIDERS: ATTENDING PHYSICIAN Nurse Practitioner Adult Health; FAMILY PHYSICIAN Internal Medicine Geriatric Medicine | DX: I35.0 Nonrheumatic aortic (valve) stenosis (principal) | CPT/HCPCS: 74174; Q9967 ==

== ENCOUNTER 2025-01-24 07:38 | Inpatient (IN) | payer OTHER, SELFPAY ==
[2025-01-21 12:13] VITALS: BMI 27.3
[2025-01-21 12:51] LABS: Urine Albumin Negative (Neg - Trace); Urine Bilirubin Negative (Negative); Urine Character Clear (Clear); Urine Color Yellow; Urine Glucose Negative (Negative); Urine Ketone Negative (Negative); Urine Leukocyte Negative (Negative); Urine Nitrite Negative (Negative); Urine Occult Blood Negative (Negative); Urine Specific Gravity 1.015 (<1.030); Urine Urobilinogen Negative (Neg - 1+)
[2025-01-21 12:53] LABS: % Basophils 0.3 % (0-2); % Eosinophils 2.2 % (0-6); % Immature Granulocytes 0.4 % (0-0.5); % Lymphocytes 17.9 % (20.5-51.1); % Monocytes 10.8 % (1.7-9.3); % Neutrophils 68.4 % (42.2-75.2); Absolute Eosinophils 0.2 10^3/uL (0-0.7); Absolute Lymphocytes 1.7 10^3/uL (1.2-3.4); Absolute Neutrophils 6.6 10^3/uL (1.4-6.5); Hematocrit 41.3 % (39.0-52.0); Mean Corp Hgb Conc. 33.9 g/dL (33.0-37.0); Mean Corpuscular Hgb 31.9 pg (27.0-31.0); Mean Corpuscular Volume 94.1 fL (80.0-94.0); Mean Platelet Volume 10.7 fL (7.4-10.4); Nucleated Red Blood Cells % 0 % (-); Platelet Count 227 10^3/uL (130-400); Red Blood Cell Count 4.39 10^6/uL (4.70-6.10); Red Cell Dist. Width 13.1 % (11.5-14.5); White Blood Cell Count 9.6 10^3/uL (4.8-10.8)
[2025-01-21 13:01] LABS: INR 1.01; PT 13.6 Sec (11.4-14.6)
[2025-01-21 13:02] LABS: APTT 32.3 Sec (23.4-35.0)
[2025-01-21 13:08] LABS: ALT (SGPT) 25 U/L (0-50); AST (SGOT) 25 U/L (17-59); Albumin 3.8 g/dl (3.5-5.0); Alkaline Phosphatase 106 U/L (38-126); Blood Urea Nitrogen 34 mg/dl (9-20); Calcium 9.9 mg/dl (8.4-10.2); Carbon Dioxide 28 mmol/L (22-30); Chloride 104 mmol/L (98-107); Direct Bilirubin 0.1 mg/dl (0.0-0.4); Estimated Creatinine Clearance 53 ml/min; Glucose 134 mg/dl (70-99); Potassium 4.4 mmol/L (3.5-5.1); Sodium 138 mmol/L (135-145); Total Bilirubin 0.5 mg/dl (0.2-1.3); Total Protein 6.5 g/dl (6.3-8.2); eGFR > 60.00
[2025-01-21 13:16] LABS: NT-proBNP 854 pg/ml
[2025-01-21 13:23] LABS: Glycohemoglobin (HgbA1c) 7.2 % (4.0-5.6)
--- NOTE | 2025-01-21 14:07 | CM ---
Chart reviewed. Met with the patient and his in PAT. Reviewed preoperative and postoperative instructions and restrictions, along with showering guidelines. Gave patient 2 soaps to take home. Patient is agreeable to a home visit by CT
Transitional RN. Patient is independent of ADLS, lives with his in Independent Living at [facility], [address], [address], occasionally ambulates with a SPC. Plan is for the patient to return home with CT Transitional RN.
--- NOTE | 2025-01-21 14:54 | HPS.HSE ---
Family Physician
-
Family Physician: Isai Olsen
Cardiology: Dr. Bess
Chief Complaint
-
Symptomatic aortic stenosis/ pre-procedure History and Physical
History of Present Illness
Patient is an 84-year-old male, formally followed by Dr. Rodríguez, who has a history of severe aortic stenosis with mean gradient of 45 mmHg based on echocardiogram 01/06/2023, PAD (bilateral SFA stenting), hypertension, diabetes, hemochromatosis,
history of CVA 2017 and smoking who presents for pre-procedure history and physical. Patient had some exertional SOB for months. He states that sometimes when he carries his briefcase from the car to his office he will even have some shortness of
breath and almost feels like he has some burning in his chest. Currently denies chest pain, palpitations, orthopnea or PND. He presented to the ER in November for evaluation and was found to be in acute HF and was admitted for inpatient management..
Echocardiogram was repeated during that admission and was notable for EF 65-70%, Severe PG/M/59, MARIAN: 0.5-0.6, No AI, Mild TR. Cardiac cath was notable for Right dominant circulation with a 30% lesion in the mid LAD, a 50% lesion in the
proximal margin of the ramus and a 40% lesion in the proximal margin of the right posterolateral branch. Moderately elevated filling pressures (PCWP = 21 mmHg at 87.1 kg). Preserved cardiac function (cardiac index = 2.29 L/min/m�). Mild,
postcapillary pulmonary hypertension (mean PA = 32 mmHg, PCWP = 21 mmHg, cardiac output 4.79 L/min/m�, PVR = 2.30 [place] units).
Patient was initially seen during his November admission and process for TAVR evaluation was then started. He underwent all testing and a CT surgery consult. After discussion with the heart team, TAVR was felt to be the appropriate treatment for his
severe, symptomatic . He will undergo TAVR on 01/24/2025 utilizing a 26mm S3 via transfemoral access. Patient does have PAD so did explain if the doctor can not easily advance the catheters they may have to stop the procedure and evaluate for
alternate access. Reviewed risks of procedure. Allowed for and answered questions. Patient to arrive on 01/24/2025 at 0730. Prior to arrival he was instructed to take his ASA/Clopidogrel. He is aware he will receive a call Tue to confirm
procedure and answer any questions.
Medical History
Past Medical History
Past Medical History: Reports CAD, CHF, COPD (probably but not formally diagnosed), CVA (TIA 2017), HTN, Hypercholesterolemia, IDDM, Valvular Disease (, mild TR) and Other (PAD, Hemochromatosis, Glaucoma, right carpel tunnel)
Past Surgical History: Reports Other (Double front sinusotomy, retinal surgery, cataract surgery, laser eye treatment, removal left eyelid cyst, right carpel tunnel release, Arteriogram and bilateral SFA stents, right knee surgery)
Social History
Tobacco: Smoker (down to 1-2 cigarettes a day)
Alcohol: Occasional
Drug: None
Personal:
Living: With Family
Employment: Employed ([employer])
Family History
Family History: Not pertinent
Allergies / Home Medications
Allergies reflects when Allergies were last updated in [employer].
Home Medications with original date entered in [employer]
Allergy/Medication List:
Allergies:
NKDA
Medications:
Aspirin 81(Aspirin) 81 MG Tablet Chewable 1 tablet Orally Once a day.
Atorvastatin Calcium 80 MG Tablet TAKE 1 TABLET BY MOUTH EVERY DAY.
Clopidogrel Bisulfate 75 MG Tablet 1 tablet Orally Once a day.
Combigan(Brimonidine Tartrate-Timolol) 0.2-0.5 % Solution 1 drop into both eyes Ophthalmic Twice a day.
Dapagliflozin Propanediol 10 MG Tablet 1 tablet Orally Once a day.
Lantus SoloStar(Insulin Glargine) 100 UNIT/ML Solution Pen-injector INJECT 28 UNITS UNDER THE SKIN EVERY DAY Subcutaneous
Lasix(Furosemide) 20 MG Tablet 1 tablet Orally Once a day
Lisinopril 20 MG Tablet TAKE 1 TABLET BY MOUTH EVERY DAY.
NovoLOG FlexPen(Insulin Aspart) 100 UNIT/ML Solution Pen-injector INJECT 16 UNITS BEFORE MEALS Subcutaneous three times a day.
Review of Systems
-
History Source: Patient
Constitutional: Reports No Symptoms; Denies Weight Gain or Weight Loss
EENT: Reports No Symptoms
Respiratory: Reports Cough (occasional 'smoker's cough', productive with clear to yellow sputum)
Cardiac: Reports See HPI; Denies Palpitations or Syncope
Abdomen/GI: Reports No Symptoms; Denies Abdominal Pain, Nausea, Vomiting, Diarrhea or Constipated
: Reports Frequency; Denies Incontinence, Difficulty Voiding, Urgency or Bleeding
Musculoskeletal: Reports No Symptoms
Skin: Reports No Symptoms
Neurological: Reports No Symptoms
Hematologic/Lymphatic: Reports No Symptoms
Psych: Reports No Symptoms
Physical Exam
Physical Exam
General: Well Developed, Well Nourished, No Apparent Distress and Comfortable
HEENT: NormoCephalic, Moist mucous membranes and PERRLA
Respiratory: Clear and Non Labored Respirations; No Wheezes, Rales or Rhonchi
Cardiac: S1/S2, Regular Rhythm and Murmur (Grade II/ MILTON)
Breast: Deferred by me
GI: Soft, Non Tender, Non Distended and Normal Bowel Sounds
Rectal: Deferred by Provider
Genito-urinary: Deferred by me
Musculoskeletal: Edema, Left Lower Extremity (+1) and Edema, Right Lower Extremity (+1)
Skin: Warm
Neuro: AO x 3, No Motor Deficits and Nonfocal/grossly intact
Psych: Calm and Intact Judgment/Insight
Laboratory Results
-
01/21/25 12:33
01/21/25 12:33
Laboratory Results
PT 13.6 Sec (11.4-14.6) 01/21/25 12:33
INR 1.01 01/21/25 12:33
APTT 32.3 Sec (23.4-35.0) 01/21/25 12:33
Total Bilirubin 0.5 mg/dl (0.2-1.3) 01/21/25 12:33
AST 25 U/L (17-59) 01/21/25 12:33
ALT 25 U/L (0-50) 01/21/25 12:33
Alkaline Phosphatase 106 U/L (38-126) 01/21/25 12:33
Data Reviewed
-
Diagnostic Radiology: Report Reviewed by me
CT Scan: Report Reviewed by me, Discussed with Physician, Discussed with Patient and Discussed with Family
Medical Tests (Nuc Med, Echo, EKG etc): Report Reviewed by me
Lab Data: Labs Reviewed by me
Old Records: Reviewed (Cardiology and CT surgery consult notes)
Impression/Plan
-
IMPRESSION:
Severe, symptomatic aortic stenosis
PLAN:
- TF TAVR utilizing a 26mm S3 valve
- Continue ASA and Plavix
- POD #1/#30 echocardiogram
- Cardiac rehab consult
[2025-01-24] VITALS (23 sets, daily range): BP systolic 92–155; BP diastolic 44–73; BMI 26.5
[2025-01-24 07:47] LABS: Glucose - Point of Care 147 mg/dl (70-99)
[2025-01-24] MEDS: ANCEF 10 IV (10:58)
--- NOTE | 2025-01-24 11:44 | CM ---
Chart reviewed. Patient is in the OR today. Patient is independent of ADLS, lives with his in Independent Living at [facility], [address], [address], ambulates occasionally with a SPC. Plan is for the patient to return home with CT Transitional
RN. BHARAT to follow
[2025-01-24 12:18] LABS: ACT-LR - POC 245 Seconds (116-155)
[2025-01-24 12:28] LABS: ACT-LR - POC 308 Seconds (116-155)
--- NOTE | 2025-01-24 13:04 | W.CVOR.SURPR ---
CVOR Surgeon Immed Pre Op
-
I have examined this patient prior to performance of the scheduled procedure.
The patient's condition is unchanged from the time of the dictated/written History and
Physical and the patient is able to undergo the scheduled procedure.
--- NOTE | 2025-01-24 13:04 | W.IMMPOSTOP ---
Surgical Immed Post Op Note
-
[id number]
STRUCTURAL HEART PROCEDURE NOTE: TAVR
Preoperative Dx:
Severe aortic stenosis (P/M: 96/59, MARIAN 0.5-0.6, Behavioral Health Technician 4.89)
HTN/HLD
Severe PVD s/p prior peripheral stenting
DM
CAD
Hemochromatosis
Tobacco abuse
Glaucoma
Postoperative Dx:
Same
Acute on chronic combined systolic/diastolic CHF w/ elevated LVEDP: 31mmHg
Procedures:
1) L CFV access w/ U/S and fluoroscopic guidance, seldinger technique, long 6Fr sheath placement
2) L MELTER HELPER access w/ tactile, U/S, and fluoroscopic guidance, seldinger technique, long 6Fr sheath placement
3) Placement of temporary RV pacing wire; threshold testing
4) Placement of pigtail catheter in RCC w/ limited aortography & confirmation of co-planar valve angles
5) R MELTER HELPER access w/ tactile, U/S, and fluoroscopic guidance, micropuncture technique, limited angiography, 8Fr dilator/sheath placement
6) Placement of perclose sutures x 2 into R MELTER HELPER
7) Serial dilation of R ileofemoral system w/ subsequent placement of Rahman E-sheath (systemic heparinization)
8) Wire purchase across stenotic AV (AL-1, soft-tip straight, LVEDP assessment, extra-stiff)
9) R TF TAVR w/ placement of 26mm CINDY 3 valve
10) Completion aortography x 2
11) Completion TTE (mean gradient 4mmHg, no AI/PVL)
12) Removal of valve delivery system & Edward E-sheath w/ R MELTER HELPER mgmt w/ perclose sutures x 2; manual pressure
13) Completion R ileofemoral angiography - minor extravasation noted - additional manual pressure maintained
14) Contralateral access of R ileofemoral system w/ directed angiography demonstrating resolution of minor extravasation
15) Removal of temporary pacing wire
16) Removal of L MELTER HELPER and L CFV 6Fr sheath w/ manual pressure (protamine administration)
Pot Liner:
Dr. Ivan Bess
Cardiac Surgeon:
Dr. Acosta Shook
Anesthesia:
MAC & local to B/L groins
Implants:
Rahman [employer]; CINDY 3 valve; 26mm; SN: [id number]
Perclose x 2 to R MELTER HELPER
Cath Data:
Start: 1140hrs, Deploy: 1215hrs, End: 1300hrs
FT: 23.0min, mGy: 742.86, DAP: 88.7763, Contrast: 90mL
Post-TTE: mean gradient 4mmHg, no AI/PVL
Complications:
Minor extravasation noted on device side, successfully managed w/ manual pressure
Condition:
Stable/guarded to recovery
--- NOTE | 2025-01-24 13:32 | W.PN.UPDATE ---
Update Note
Progress Note Update
Reviewed Mr. Martinez with the heart team in the preTAVR SDM meeting and confirmed a 26 mm S3 via right transfemoral access. Patient will continue aspirin and plavix post TAVR. LVEDP 31mmHg. # 26mm S3 (serial# [id number]) successfully deployed via (R)
TF access. Post implant MG 4mmHg.
[2025-01-24] MEDS: DILAUDID 0.25 MG IV (14:03)
[2025-01-24] MEDS: TYLENOL 650 MG PO (15:09)
[2025-01-24 15:11] LABS: Glucose - Point of Care 141 mg/dl (70-99)
--- NOTE | 2025-01-24 15:37 | PTCARENOTE ---
Received pt from recovery area. Pt complains of back pain, given PRN medication by field laboratory operator RN. Pt and educated on expected OOB time and restrictions. VSS, SB on tele monitor. Oriented to room and unit. Call kumari within reach.
[2025-01-24] MEDS: NOVOLOG FLEXPEN SC ×2 (16:11→18:58)
[2025-01-24] MEDS: ANCEF IV (16:28)
[2025-01-24] MEDS: LIPITOR PO (16:29)
[2025-01-24 17:25] LABS: Glucose - Point of Care 111 mg/dl (70-99)
--- NOTE | 2025-01-24 17:50 | ITS.CL.PN ---
Women'S Garment Fitter - Procedure Note
Procedure
Procedure Note:
TRANSCATHETER AORTIC VALVE REPLACEMENT REPORT
Date of Procedure: 01/24/2025
Referring: Dr. Srinivas smart MD
Indication: Symptomatic severe aortic stenosis
Operators: Ivan Bess MD, PhD (interventional cardiology); Acosta Shook MD (CT surgery)
Anesthesia: conscious sedation provided by the anesthesia staff
PROCEDURE: transfemoral, transcatheter aortic valve replacement with a CINDY S3 Ultra 26 mm TAVR valve
ACCESS:
1. 6F left femoral vein (closure: manual hemostasis)
2. 6F left common femoral artery (closure: Angioseal)
3. 14 F right common femoral artery (closure: Perclose x2)
ULTRASOUND GUIDED VASCULAR ACCESS (left femoral artery): Ultrasound was utilized for vascular access. The vessel was visualized under ultrasound and noted to be patent. An image of the vessel was stored permanently in the patient's medical record.
Under direct ultrasound guidance, vascular access was obtained using a modified Seldinger technique and a 6 [place] Citizen sheath was placed.
ULTRASOUND GUIDED VASCULAR ACCESS (left femoral vein): Ultrasound was utilized for vascular access. The vessel was visualized under ultrasound and noted to be patent. An image of the vessel was stored permanently in the patient's medical record.
Under direct ultrasound guidance, vascular access was obtained using a modified Seldinger technique and a 6 [place] Citizen sheath was placed.
ULTRASOUND GUIDED VASCULAR ACCESS (right radial artery): Ultrasound was utilized for vascular access. The vessel was visualized under ultrasound and noted to be patent. An image of the vessel was stored permanently in the patient's medical record.
Under direct ultrasound guidance, vascular access was obtained using a modified Seldinger technique and a 8 [place] Citizen sheath was placed.
HEMODYNAMIC DATA
LV 181/10 (EDP 31) mmHg
PROCEDURE NARRATIVE:
The patient was prepped and draped in standard sterile fashion. Conscious sedation was provided by the anesthesia staff. 6F left femoral vein and left common femoral artery access was obtained with ultrasound guidance using micropuncture technique
with verification of appropriate arteriotomy location via hand injection angiography. A temporary venous pacing wire was advanced via the left femoral vein to the right ventricle under fluoroscopic guidance with appropriate capture verified. A 5F
pigtail catheter was advanced via the left common femoral artery and seated in the right coronary cusp. Angiography was performed to verify the co-planar angle.
8F right common femoral artery access was obtained with ultrasound guidance using micropuncture technique with verification of appropriate arteriotomy location via hand injection angiography. The arteriotomy was preclosed with two Perclose sutures
followed by replacement of the 8F sheath. Using an AL1 catheter, an Amplatz Superstiff wire was placed in the descending thoracic aorta. The 8F sheath was removed and the 14 F Rahman E-sheath was inserted over the Superstiff wire and into the
descending aorta. Heparin 7000 units was given. The AL1 catheter was re-advanced through the E-sheath to the level of the ascending aorta. The Superstiff wire was exchanged for a soft tipped straight wire which was used to cross the aortic valve and
deposit the AL1 in the LV apex. A J-wire was used to exchange the AL1 for a pigtail catheter in the LV and LVEDP was measured. An Amplatz Extrastiff wire with curved proximal end was advanced through the pigtail catheter and seated in the LV apex.
ACT was checked and confirmed to be >250 seconds.
The valve was brought to the table with orientation and deployment contrast volume verified. The valve was advanced over the Extrastiff wire and into the descending aorta. The balloon was withdrawn, and the valve was mounted on the balloon. The
valve was advanced over the aortic arch and into the aortic valve annulus. The pusher device was withdrawn. Low volume aortography confirmed valve positioning. The valve was deployed during rapid ventricular pacing. The balloon was walked back to
the descending aorta while leaving the wire in place. The patient was resuscitated by anesthesia with recovery of adequate blood pressure. Telemetry demonstrating normal sinus rhythm. Aortography demonstrated good valve positioning, adequate
coronary filling, and no aortic valve insufficiency. Echocardiography confirmed no aortic insufficiency. Mean valve gradient was 4 mmHg. The valve deployment system was removed.
The Rahman E sheath was removed, and hemostasis obtained with the two Perclose sutures. Aortoiliac angiography demonstrated small area of extravasation at the right femoral artery access site. While manual pressure was held up and over access was
obtained via the left femoral artery using a rim catheter and Navarro wire allowing exchange for a multipurpose catheter and perform selective hand-injection DSA angiography of the right common femoral artery. By the time this angiogram was obtained
there was no further evidence of extravasation, vessel dissection or trauma, and brisk distal runoff. The pacemaker and the Rim catheter were removed. The left femoral artery sheath was removed using a 6F Angioseal. The left femoral venous sheath
was removed with manual pressure.
RADIATION: dose 742 mGy; DAP 23 Gy*cm2; fluoroscopy time 88.7 min
CONCLUSIONS
1. successful placement of a CINDY S3 ultra 26 mm transcatheter aortic valve via right transfemoral approach with no acute complications
2. acute on chronic heart failure with elevated filling pressures (LVEDP = 31)
Copy to: (PCP)
Signed: Ivan Bess MD, PhD
[2025-01-24] MEDS: LASIX 20 MG IV (19:38)
[2025-01-24] MEDS: ANCEF 5 IV (19:38)
[2025-01-24] MEDS: ALPHAGAN 0.2% EYE DROPS 1 DROP OPHTH (19:44)
[2025-01-24] MEDS: TIMOPTIC 0.5% OPHTHALMIC SOLUTION 1 DROP OPHTH (19:44)
--- NOTE | 2025-01-24 20:33 | PTCARENOTE ---
Patient received at change of shift resting the bed. Initially agitated and angry regarding bedrest until 1930. Discussed with patient purpose of and reasoning for bedrest following TAVR procedure. Sinus rhythm/sinus valente with first degree AV block
on monitor technician. Oxygen saturation 95-98% on room air. Patient denies chest pain, palpitations, and/or lightheadedness. Reports baseline lower extremity neuropathy. Bilateral groin sites with gauze and tegaderm C/D/I, area soft to palpation.
Bilateral pedal pulses weak to palpation but +2 with doppler. Patient voided 350cc jatinder urine. Patient OOB with x1 assist after completing bedrest, discussed with patient to please utilize call kumari for assistance when OOB, patient verbalized
understanding. Plan of care discussed with patient. Call kumari within reach. Care ongoing.
[2025-01-24 22:12] LABS: Glucose - Point of Care 228 mg/dl (70-99)
[2025-01-25] VITALS (7 sets, daily range): BP systolic 116–165; BP diastolic 43–81; PULSE 63; O2SAT 96–99; BMI 26.5
[2025-01-25] MEDS: TYLENOL 650 MG PO ×2 (03:30→13:08)
[2025-01-25 04:02] LABS: Hematocrit 38.5 % (39.0-52.0); Hemoglobin 13.1 g/dL (13.0-18.0); Mean Corpuscular Hgb 31.5 pg (27.0-31.0); Mean Corpuscular Volume 92.5 fL (80.0-94.0); Mean Platelet Volume 10.5 fL (7.4-10.4); Platelet Count 196 10^3/uL (130-400); Red Blood Cell Count 4.16 10^6/uL (4.70-6.10); Red Cell Dist. Width 13.1 % (11.5-14.5)
[2025-01-25 04:10] LABS: Blood Urea Nitrogen 33 mg/dl (9-20); Calcium 9.5 mg/dl (8.4-10.2); Carbon Dioxide 28 mmol/L (22-30); Chloride 106 mmol/L (98-107); Estimated Creatinine Clearance 53 ml/min; Glucose 137 mg/dl (70-99); Potassium 4.3 mmol/L (3.5-5.1); Sodium 138 mmol/L (135-145); eGFR > 60.00
--- NOTE | 2025-01-25 06:33 | W.PN.CT ---
Today's Communication / Plan
-
-pod #1
-no issues overnight
-c/o tenderness in R groin with touch - groins feel soft b/l with no palpable hematoma b/l
-tele: sinus 50s-70s, occasional PVCs. No significant pauses
-preop had 1st degree AVB and sinus valente low 50s- no change postop. Pt is not on AVN blocking meds
-diuresed well with 20 iv Lasix post TAVR (UO 1250+)
-Echo today
-current meds (ASA, Farxiga, Lipitor, Insulin). Restart Plavix
-encourage IS, ambulate
-possible d/c
-
Assessment / Plan
-
- Severe symptomatic - s/p R TF TAVR w/ placement of 26mm CINDY 3 valve on 01/24/25, pod #1
- Acute on chronic combined systolic/diastolic CHF w/ elevated LVEDP: 31mmHg- diuresed with 20 iv Lasix (UO 1250+)
- Post-TTE: mean gradient 4mmHg, no AI/PVL
- HTN/HLD
- Severe PVD s/p prior peripheral stenting
- DM II
- CAD
- PAD, s/p 3 stents RLE 2019, b/l SFA stents- on ASA and Plavix preop
- TIA 2018
- b/l cataract repair,
- Hemochromatosis
- Tobacco abuse current
- Suspected COPD
- Glaucoma
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
Discussed patient care with: Nursing and Care Team
Subjective
-
Date of Service: January 25, 2025
Objective Data
-
PT 13.6 Sec (11.4-14.6) 01/21/25 12:33
INR 1.01 01/21/25 12:33
APTT 32.3 Sec (23.4-35.0) 01/21/25 12:33
Vital Signs
Vital Signs
Temp Pulse Resp BP Pulse Ox
97.7 F 57 18 148/54 99
01/24/25 23:04 01/24/25 23:23 01/24/25 23:04 01/24/25 23:23 01/24/25 23:04
CT Intake/Output/Weight
01/24/25 01/24/25 01/25/25
06:59 18:59 06:59
Output Total 350 / 1250 900 / 1250
Balance -350 / -1250 -900 / -1250
SaO2: 99
Physical Exam
-
General: Awake and AOx3
Cardiovascular: Regular rate & rhythm, No Murmurs and No Rub
Respiratory: Decreased Breath Sounds
Incision: Other (groins are cdi, soft, nontender, nondistended, no hematoma b/l)
Extremities: No Edema
Abdomen: soft, nontender, nondistended, + bowel sounds
Data Reviewed
-
Lab Results: Results Reviewed
Medications: Active Meds Reviewed
Chest X-Ray: Report Reviewed and Image Reviewed
ECG: Report Reviewed and Image Reviewed
[2025-01-25 07:07] LABS: Glucose - Point of Care 136 mg/dl (70-99)
[2025-01-25] MEDS: LANTUS 0.28 UNITS SC (07:52)
[2025-01-25] MEDS: ALPHAGAN 0.2% EYE DROPS 1 DROP OPHTH (07:53)
[2025-01-25] MEDS: ASPIR LOW (ENTERIC COATED) 81 MG PO (07:53)
[2025-01-25] MEDS: PLAVIX 75 MG PO (07:53)
[2025-01-25] MEDS: LIPITOR 80 MG PO (07:53)
[2025-01-25] MEDS: TIMOPTIC 0.5% OPHTHALMIC SOLUTION 1 DROP OPHTH (07:53)
[2025-01-25] MEDS: NOVOLOG FLEXPEN SC (07:54)
--- NOTE | 2025-01-25 08:25 | W.PN.ANS.POP ---
Anesthesia Post Operative
- Anesthesia Post Op Note
Vital Signs Stable-See Nursing Note: Yes
Airway Patent: Yes
Adequate Pain Control: Yes
Change in Mental Status: No
Current Postoperative Nausea & Vomiting: No
Anesthesia Complications: No
General Anesthetic Recall: No
Unplanned Admission: No
Post Op Hydration Adequate: Yes
--- NOTE | 2025-01-25 09:23 | W.DCSUMMARY ---
Discharge Summary
Discharge Data
Date of Admission: 01/24/25
Date of Discharge: 01/25/25
-
Pending Results: No
Hospital Course
Primary care physician: Isai Olsen
Outpatient hydraulic press servicer: Nilehs Bess
Inpatient consultants: [facility]
Procedures:
1. TAVR
Primary Diagnosis:
1. Severe aortic stenosis
Secondary Diagnoses:
1. HTN
2. HLD
3. Severe PVD s/p prior peripheral stenting
4. Type 2 DM (A1C 7.2)
5. CAD (50% ramus, 40% RPL)
6. Hemochromatosis
7. Tobacco abuse
8. Glaucoma
9 HFpEF s/p hospitalization 11/2024
HPI: 84-year-old male was electively admitted on 01/24/2025 for TAVR.
Hospital course: Patient underwent right transfemoral TAVR #26mm CINDY 3 [address] Drs. Acosta Shook and Nilesh Solano. Valve was deployed without incident and patient returned to IVU. Lasix 20 mg IV was given for an LVEDP of 31 with resultant
diuresis of 1250 cc urine output. ECG on postoperative day #1 reported sinus rhythm with first-degree AV block which was unchanged from preop. Patient will continue on aspirin and Plavix. Predischarge echocardiogram reported EF of 70 to 75% with
AV gradients of 33/16 mmHg and no AI. Patient states he was taken off his dapagliflozin 2 weeks prior to admission due to hypoglycemia. This medication was not restarted on discharge. Groin sites were stable without hematoma or bleeding.
Home medication changes:
Stop dapagliflozin
Discharge Plan
-
Patient Disposition: Home (Routine Discharge)
Discharge Diagnosis/Procedures: TF-TAVR
Condition: Good
Diet: Low Cholesterol and 2 Gram Sodium
Activity: As tolerated
Driving Restrictions: No driving for 1 week
Bathing Restrictions: OK to Shower
Others Tests: 30 Day Follow Up Echocardiogram: 02/26/2025 at 9:20am at [facility]
Other Services: Cardiac Rehab
Wound Care: Please do not apply lotions, creams or powders to groin areas. Please monitor for increased pain, swelling, redness or drainage. If any occur please contact your doctor.
Specialty Instructions: Weigh Daily- Call MD for wt gain/loss 3 lbs overnight/5 lbs in 1 week
Referrals:
CT Transitional Care Nurse [Outside] (The Cardiothoracic Transitional Care Nurse will call you to set up a visit in 1-2 days.)
[facility] [Outside] - 03/01/25 1:00 pm
Nohemi Rausch CRNP [Specified Professional Personl] - 02/22/25 10:40 am
Isai Olsen MD [Family Provider] -
Prescriptions:
New
acetaminophen 325 mg Tablet
650 mg PO Q4HPRN PRN (Reason: FERRER, mild pain, or fever >101F) Qty: 0 0RF
clopidogrel 75 mg Tablet
75 mg PO DAILY Qty: 30 1RF
Continued
insulin aspart U-100 [Novolog FlexPen U-100 Insulin] 100 UNITS/ML insulin pen
14 - 16 units SC MEALS
Rx Instructions:
SLIDING SCALE;
atorvastatin 80 MG tablet
80 mg PO DAILY
lisinopril 20 MG tablet
20 mg PO DAILY
aspirin 81 MG tablet,delayed release (DR/EC)
81 mg PO DAILY
brimonidine-timolol [Combigan] 1 DROP drops
1 drp ophthalmic (eye) BID
Rx Instructions:
BOTH EYES
Changed
insulin glargine [Lantus U-100 Insulin] 1,000 UNITS/10 ML solution
28 unit SC DAILY Qty: 0 0RF
Patient Comments:
took 14 units 1/2 usual dose
Discontinued
dapagliflozin propanediol 10 mg Tablet
10 mg PO DAILY Qty: 30 0RF
Discharge Orders:
Discharge Patient (As Directed); Ordered 01/25/25
Ordered By: Arcelia Huynh
Discharge Date and Time
Print Language: SURINAMESE
[2025-01-25] MEDS: ZESTRIL 20 MG PO (09:31)
--- NOTE | 2025-01-25 10:07 | CM ---
CM following for DC planning needs.
Pt. is POD#1 from TAVR. Met w/ patient, spouse at bedside.
Pt. reports that he is feeling well. We reviewed post op MD appointment, Cardiac Rehab and visit from CT Transitional Care RN.
Plan is for home w/ CT RN.
--- NOTE | 2025-01-25 10:22 | PTCARENOTE ---
Pt declined Farxiga, stated his correctional security officer took him off it prior to admission for low blood sugar.
[2025-01-25 12:20] LABS: Glucose - Point of Care 320 mg/dl (70-99)
[2025-01-25] MEDS: NOVOLOG FLEXPEN 16 UNITS SC (13:00)
--- NOTE | 2025-01-25 14:39 | W.PN.CD ---
Today's Communication / Plan
-
discharge
Impression / Plan
-
Mr. Martinez is a 84 year old man with severe symptomatic s/p R TF TAVR w/ placement of 26mm CINDY 3 valve on 01/24/25.
LVEDP during procedure was elevated at 31 mmHg. He recieved 20 IV lasix with UOP 1.2 L.
Today feeling well. Mild soreness at L groin.
TTE with mean gradient 14 mmHg (up from 4 mmHg in lab).
Plan:
Discharge to home.
Cont. ASA/Plavix for prior PAD.
Physical Exam
Vital Signs/Labs
Vital Signs
Temp Pulse Resp BP Pulse Ox
36.8 C 70 18 163/81 95
01/25/25 14:16 01/25/25 14:02 01/25/25 10:52 01/25/25 14:03 01/25/25 14:16
01/24/25 01/25/25 01/26/25
06:59 06:59 06:59
Actual Weight 83.7 kg
01/25/25 03:23
01/25/25 03:23
PT 13.6 Sec (11.4-14.6) 01/21/25 12:33
INR 1.01 01/21/25 12:33
APTT 32.3 Sec (23.4-35.0) 01/21/25 12:33
01/21/25
12:33
[id number] Pept [id number]
Physical Exam
Constitutional: No acute distress
Cardiovascular: Rhythm & rate is regular
Respiratory: Respiratory effort normal
Neuro/Psych: AO x 3
Other: Cath Site (cdi)
Data Reviewed
-
Date of Service: January 25, 2025
Medical Decision Making: External Notes
EKG: Tracing Personally Visualized and interpreted
Echo: Tracing Personally Visualized and interpreted
Labs: Labs Reviewed by me
== END 2025-01-25 15:00 | disposition home or self-care (01) | DRG 266 ==
LOC: IVU 07:38
PROVIDERS: Nurse Practitioner; ADMITTING PHYSICIAN Thoracic Surgery (Cardiothoracic Vascular Surgery); CONSULT PHYSICIAN Internal Medicine; FAMILY PHYSICIAN Internal Medicine Geriatric Medicine; OTHER PHYSICIAN Student in an Organized Health Care Education/Training Program
PROC: 02RF38Z Replacement of Aortic Valve with Zooplastic Tissue, Percutaneous Approach (ICD-10-PCS; 2025-01-24)
DX: I35.2 Nonrheumatic aortic (valve) stenosis with insufficiency (principal); I50.43 Acute on chronic combined systolic (congestive) and diastolic (congestive) heart failure; E11.51 Type 2 diabetes mellitus with diabetic peripheral angiopathy without gangrene; E83.119 Hemochromatosis, unspecified; I11.0 Hypertensive heart disease with heart failure; I27.29 Other secondary pulmonary hypertension; E78.2 Mixed hyperlipidemia; F17.210 Nicotine dependence, cigarettes, uncomplicated; I25.10 Atherosclerotic heart disease of native coronary artery without angina pectoris; H40.9 Unspecified glaucoma; R00.1 Bradycardia, unspecified; I44.0 Atrioventricular block, first degree; Z79.02 Long term (current) use of antithrombotics/antiplatelets; Z79.4 Long term (current) use of insulin; Z79.82 Long term (current) use of aspirin; Z79.899 Other long term (current) drug therapy; Z86.73 Personal history of transient ischemic attack (TIA), and cerebral infarction without residual deficits; Z95.820 Peripheral vascular angioplasty status with implants and grafts
CPT/HCPCS: 93308; 33361; 36415; 71045; 71046; 76937; 80048; 80053; 81003; 82248; 82962; 83036; 83880; 85025; 85027; 85347; 85610; 85730; 86850; 86900; 86901; 87070; 93005; 93321; 93325; 99406; C1760; C1769; C1894; Q9967

== ENCOUNTER → 2025-02-26 08:53 | Outpatient (REF) | payer OTHER, SELFPAY | LOC: HWRCS 08:53 | PROVIDERS: ATTENDING PHYSICIAN Student in an Organized Health Care Education/Training Program; FAMILY PHYSICIAN Internal Medicine Geriatric Medicine | DX: I35.0 Nonrheumatic aortic (valve) stenosis (principal) | CPT/HCPCS: 93306 ==

== ENCOUNTER 2025-04-19 09:39 | Outpatient (RCR) | payer OTHER, SELFPAY ==
[2025-03-26 14:16] LABS: Glucose - Point of Care 132 mg/dl (70-99)
[2025-03-26 14:55] LABS: Glucose - Point of Care 101 mg/dl (70-99)
[2025-03-29 06:34] LABS: Glucose - Point of Care 124 mg/dl (70-99)
[2025-03-29 07:20] LABS: Glucose - Point of Care 111 mg/dl (70-99)
[2025-04-01 08:05] LABS: Glucose - Point of Care 156 mg/dl (70-99)
[2025-04-01 08:52] LABS: Glucose - Point of Care 153 mg/dl (70-99)
[2025-04-03 06:33] LABS: Glucose - Point of Care 148 mg/dl (70-99)
[2025-04-03 07:20] LABS: Glucose - Point of Care 109 mg/dl (70-99)
[2025-04-05 06:37] LABS: Glucose - Point of Care 161 mg/dl (70-99)
[2025-04-05 07:24] LABS: Glucose - Point of Care 106 mg/dl (70-99)
[2025-04-08 06:33] LABS: Glucose - Point of Care 147 mg/dl (70-99)
[2025-04-08 07:24] LABS: Glucose - Point of Care 142 mg/dl (70-99)
[2025-04-17 07:22] LABS: Glucose - Point of Care 121 mg/dl (70-99)
== END 2025-04-19 23:59 | disposition home or self-care (01) ==
LOC: CRHB 09:39
PROVIDERS: ATTENDING PHYSICIAN Student in an Organized Health Care Education/Training Program
DX: Z95.4 Presence of other heart-valve replacement (principal); I25.10 Atherosclerotic heart disease of native coronary artery without angina pectoris (principal)
CPT/HCPCS: 82962; G0422; G0423

== ENCOUNTER → 2025-04-25 07:24 | Outpatient (REF) | payer OTHER, MEDICARE, SELFPAY | LOC: DHVS 07:24 | PROVIDERS: ATTENDING PHYSICIAN Surgery Vascular Surgery; FAMILY PHYSICIAN Internal Medicine Geriatric Medicine | DX: I73.9 Peripheral vascular disease, unspecified (principal) | CPT/HCPCS: 93922; 93925 ==

== ENCOUNTER 2025-05-06 08:44 | Outpatient (RCR) | payer OTHER, SELFPAY ==
[2025-04-29 07:17] LABS: Glucose - Point of Care 53 mg/dl (70-99)
[2025-04-29 07:35] LABS: Glucose - Point of Care 86 mg/dl (70-99)
[2025-04-29 07:42] LABS: Glucose - Point of Care 96 mg/dl (70-99)
== END 2025-05-06 23:59 | disposition home or self-care (01) ==
LOC: CRHB 08:44
PROVIDERS: ATTENDING PHYSICIAN Student in an Organized Health Care Education/Training Program
DX: Z95.4 Presence of other heart-valve replacement (principal); Z95.3 Presence of xenogenic heart valve (principal); I10 Essential (primary) hypertension; I25.10 Atherosclerotic heart disease of native coronary artery without angina pectoris
CPT/HCPCS: 82962; G0422; G0423

== ENCOUNTER → 2025-06-04 06:47 | Outpatient (REF) | payer OTHER, SELFPAY ==
[2025-06-04 09:47] LABS: Hematocrit 41.9 % (39.0-52.0); Hemoglobin 14.4 g/dL (13.0-18.0); Mean Corp Hgb Conc. 34.4 g/dL (33.0-37.0); Mean Corpuscular Volume 91.3 fL (80.0-94.0); Platelet Count 155 10^3/uL (130-400); Red Cell Dist. Width 13.1 % (11.5-14.5)
[2025-06-04 10:06] LABS: ALT (SGPT) 18 U/L (0-50); AST (SGOT) 18 U/L (17-59); Albumin 3.6 g/dl (3.5-5.0); Alkaline Phosphatase 92 U/L (38-126); Blood Urea Nitrogen 31 mg/dl (9-20); Calcium 9.2 mg/dl (8.4-10.2); Carbon Dioxide 25 mmol/L (22-30); Chloride 111 mmol/L (98-107); Glucose 141 mg/dl (70-99); Potassium 4.2 mmol/L (3.5-5.1); Sodium 139 mmol/L (135-145); Total Protein 6.1 g/dl (6.3-8.2); eGFR > 60.00
[2025-06-04 10:32] LABS: Glycohemoglobin (HgbA1c) 8.0 % (4.0-5.6)
== END ==
LOC: HWLAB 06:47
PROVIDERS: ATTENDING PHYSICIAN Physician Assistant; FAMILY PHYSICIAN Internal Medicine Geriatric Medicine
DX: E11.65 Type 2 diabetes mellitus with hyperglycemia (principal)
CPT/HCPCS: 36415; 80053; 83036; 85027

== ENCOUNTER → 2025-10-04 06:40 | Outpatient (REF) | payer OTHER, SELFPAY ==
[2025-10-04 09:52] LABS: Hematocrit 45.0 % (39.0-52.0); Hemoglobin 14.8 g/dL (13.0-18.0); Mean Corp Hgb Conc. 32.9 g/dL (33.0-37.0); Mean Corpuscular Volume 95.7 fL (80.0-94.0); Platelet Count 225 10^3/uL (130-400); Red Cell Dist. Width 12.9 % (11.5-14.5)
[2025-10-04 10:10] LABS: ALT (SGPT) 22 U/L (0-50); AST (SGOT) 23 U/L (17-59); Albumin 3.8 g/dl (3.5-5.0); Alkaline Phosphatase 110 U/L (38-126); Blood Urea Nitrogen 23 mg/dl (9-20); Calcium 9.1 mg/dl (8.4-10.2); Carbon Dioxide 30 mmol/L (22-30); Chloride 105 mmol/L (98-107); Glucose 122 mg/dl (70-99); HDL Cholesterol 38 mg/dl; LDL Cholesterol, Calculated 63 mg/dl; Potassium 4.2 mmol/L (3.5-5.1); Sodium 137 mmol/L (135-145); Total Protein 6.6 g/dl (6.3-8.2); Very Low Density Lipoprotein 18 mg/dl (0-30); eGFR > 60.00
[2025-10-04 10:34] LABS: Glycohemoglobin (HgbA1c) 7.8 % (4.0-5.9)
== END ==
LOC: HWLAB 06:40
PROVIDERS: ATTENDING PHYSICIAN Physician Assistant; FAMILY PHYSICIAN Internal Medicine Geriatric Medicine
DX: E11.65 Type 2 diabetes mellitus with hyperglycemia (principal)
CPT/HCPCS: 36415; 80053; 80061; 83036; 85027

== ENCOUNTER → 2025-11-11 06:41 | Outpatient (REF) | payer OTHER, SELFPAY | LOC: RAD 06:41 | PROVIDERS: ATTENDING PHYSICIAN Surgery Vascular Surgery; FAMILY PHYSICIAN Internal Medicine Geriatric Medicine | DX: I73.9 Peripheral vascular disease, unspecified (principal) | CPT/HCPCS: 93922; 93925 ==